=== PATIENT | female | born 1975 | race Two or more races ===

== ENCOUNTER 2018-12-15 23:46 | Emergency (ER) | payer MEDICAID ==
[~2018-12-15] VITALS: Ht 162.6 cm; Wt 68.2 kg
--- NOTE | 2018-12-16 00:07 | NUR ---
pt escorted by this rn from [facility]16 to [facility]. Only belongings are clothes & jewelry she arrived wearing and a [place] c[place] driver's license which accompanied her to [facility]. Report given to GAYE Clayton.
--- NOTE | 2018-12-16 00:28 | NUR ---
Unable to complete assessment. Pt exited restroom wearing her leggings and stated she feels more comfortable wearing her leggings. RN requested that pt take her leggings on and put the green pants on. Pt started yelling at RN and calling names like "bitch" and "cunt" and "do you want to wear my pants". Pt standing at nurse's station. Security called for assistance. Pt continues to yell curse words and requesting staff watch her change clothes.
[2018-12-16 00:33] LABS: BASOPHILS # (AUTO) 0.1 X10'3 (0-0.2); BASOPHILS % (AUTO) 0.9 % (0-1); EOSINOPHILS # (AUTO) 0.1 X10'3 (0-0.9); EOSINOPHILS % (AUTO) 1.4 % (0-6); HEMATOCRIT 42.9 % (35.0-45.0); LYMPHOCYTES # (AUTO) 2.8 X10'3 (1.1-4.8); LYMPHOCYTES % (AUTO) 38.9 % (21-51); MEAN CORPUSCULAR HEMOGLOBIN 29.5 PG (27.0-31.0); MEAN CORPUSCULAR HGB CONC 32.7 g/dL (33.0-36.5); MEAN CORPUSCULAR VOLUME 90.3 FL (78-98); MEAN PLATELET VOLUME 9.2 FL (7.4-10.4); MONOCYTES # (AUTO) 0.6 X10'3 (0-0.9); MONOCYTES % (AUTO) 7.8 % (2-12); NEUTROPHILS # (AUTO) 3.7 X10'3 (1.8-7.7); PLATELET COUNT 241 X10'3 (140-440); RED BLOOD COUNT 4.75 X10'6 (4.20-5.60); RED CELL DISTRIBUTION WIDTH 14.7 % (11.5-14.5); WHITE BLOOD COUNT 7.3 X10'3 (4.5-11.0)
[2018-12-16 00:39] LABS: PARTIAL THROMBOPLASTIN TIME 27 SECONDS (22-32)
[2018-12-16 00:42] LABS: ALANINE AMINOTRANSFERASE 49 U/L (12-78); ALKALINE PHOSPHATASE 62 IU/L (46-116); ANION GAP 12 (8-16); ASPARTATE AMINO TRANSFERASE 35 U/L (10-37); BILIRUBIN,TOTAL 0.7 MG/DL (0.1-1.0); BLOOD UREA NITROGEN 16 MG/DL (7-18); BUN/CREATININE RATIO 16.5 (6.6-38.0); CALCIUM 8.9 MG/DL (8.5-10.1); CHLORIDE 108 MMOL/L (99-107); CREATININE 0.97 MG/DL (0.40-0.90); GLUCOSE 138 MG/DL (70-104); POTASSIUM 3.2 MMOL/L (3.5-5.1); SODIUM 143 MMOL/L (135-145); TOTAL CARBON DIOXIDE 23.4 MMOL/L (24-32); eGFR 63 ML/MIN
[2018-12-16 00:47] LABS: CLARITY,URINE CLEAR (Clear); COLOR,URINE STRAW (Yellow); GLUCOSE, URINE NEGATIVE (Neg); KETONES,URINE NEGATIVE (Neg); LEUKOCYTE ESTERASE ,URINE NEGATIVE (Neg); NITRITES, URINE NEGATIVE (Neg); OCCULT BLOOD,URINE NEGATIVE (Neg); PH,URINE 6.5 (4.8-8.0); PROTEIN,URINE NEGATIVE (Neg); UA COLLECTION TYPE CLN CATCH MIDSTREAM; UROBILINOGEN,URINE 0.2 E.U/dL (0.2-1.0)
[2018-12-16 00:53] LABS: ETHANOL 0.284 GM/DL (0.0-0.010); LIPASE 93 U/L (73-393); MAGNESIUM 2.1 MG/DL (1.5-2.4)
--- NOTE | 2018-12-16 00:55 | NUR ---
PT WAS COOPERATIVE AT FIRST BUT THEN BECAME VERBALY ASSAULTIVE WHEN ASKED TO CHANGE. PT REFUSED TO SIGN FOR CHARTED BELONGINGS, JEWELRY AND DRIVERS LICENSE ARE IN HER CHART SINCE SHE REFUSED TO SIGN WITH REGISTRATION TO HAVE THEM LOCKED UP AFTERM SHE SAID SHE WANTED THEM LOCKED UP
[2018-12-16 01:00] LABS: URINE AMPHETAMINE SCREEN NEGATIVE (Neg); URINE BARBITUATE SCREEN NEGATIVE (Neg); URINE BENZODIAZEPINES SCREEN NEGATIVE (Neg); URINE CANNABINOID SCREEN NEGATIVE (Neg); URINE COCAINE SCREEN NEGATIVE (Neg); URINE METHADONE SCREEN POSITIVE (Neg); URINE OPIATE SCREEN POSITIVE (Neg); URINE PHENCYCLIDINE SCREEN NEGATIVE (Neg)
--- NOTE | 2018-12-16 01:15 | NUR ---
PT HAS 3 SILVER RINGS , ONE WITH STONES , ONE SILVER NOSE POST AND A PAIR OF EARINGS IN A BAGGY IN HER CHART SINCE SHE WOULD NOT SIGN TO HAVE REGISTRATION LOCK THEM UP
--- NOTE | 2018-12-16 01:50 | NUR ---
Pt resting quietly, respirations normal, no s/s of distress.
--- NOTE | 2018-12-16 03:17 | NUR ---
Pt resting quietly, respirations normal, no s/s of distress.
--- NOTE | 2018-12-16 04:30 | NUR ---
Pt resting quietly, respirations normal, no s/s of distress.
--- NOTE | 2018-12-16 05:14 | NUR ---
Pt requested staff to call her place of employment to let them know she would not be in today. Pt informed of phone call usage hours and that she would need to call them. aware.
--- NOTE | 2018-12-16 05:39 | NUR ---
Pt resting quietly, respirations normal, no s/s of distress.
[2018-12-16 06:10] VITALS: BP 115/47
--- NOTE | 2018-12-16 10:09 | NUR ---
[facility] IS AT THE BEDSIDE EVALUATING PATIENT
--- NOTE | 2018-12-16 10:30 | NUR ---
PT WAS SEEN BY [facility] WORKER AND PT IS BEING DC'D HOME.
== END 2018-12-16 11:17 | disposition home or self-care (01) ==
LOC: ER 23:48
DX: F10.129 Alcohol abuse with intoxication, unspecified (principal); F32.9 Major depressive disorder, single episode, unspecified; Z98.51 Tubal ligation status; Z87.891 Personal history of nicotine dependence; Z88.5 Allergy status to narcotic agent; Y90.0 Blood alcohol level of less than 20 mg/100 ml
CPT/HCPCS: 36415; 80053; 80305; 80320; 81003; 83690; 83735; 84443; 85025; 85610; 85730; 99285

== ENCOUNTER 2019-05-19 15:16 | Inpatient (IN) | payer MEDICAID ==
[~2019-05-19] VITALS: Ht 162.6 cm; Wt 63.0 kg
[2019-05-19] MEDS ORDERED: normal saline 1000ML IV soln IVB ONE ×3 (15:30→16:20)
[2019-05-19 15:58] LABS: BASOPHILS # (AUTO) 0.1 X10'3 (0-0.2); BASOPHILS % (AUTO) 0.9 % (0-1); EOSINOPHILS % (AUTO) 0.3 % (0-6); HEMATOCRIT 36.4 % (35.0-45.0); HEMOGLOBIN 12.3 g/dl (12.0-16.0); LYMPHOCYTES # (AUTO) 1.8 X10'3 (1.1-4.8); LYMPHOCYTES % (AUTO) 13.9 % (21-51); MEAN CORPUSCULAR HEMOGLOBIN 32.8 PG (27.0-31.0); MEAN CORPUSCULAR HGB CONC 33.8 g/dL (33.0-36.5); MEAN PLATELET VOLUME 10.5 FL (7.4-10.4); MONOCYTES # (AUTO) 1.3 X10'3 (0-0.9); MONOCYTES % (AUTO) 9.9 % (2-12); NEUTROPHILS # (AUTO) 9.6 X10'3 (1.8-7.7); PLATELET COUNT 265 X10'3 (140-440); RED BLOOD COUNT 3.75 X10'6 (4.20-5.60); WHITE BLOOD COUNT 12.9 X10'3 (4.5-11.0)
[2019-05-19 16:04] LABS: ALANINE AMINOTRANSFERASE 101 U/L (12-78); ALBUMIN/GLOBULIN RATIO 1.1 (1.1-1.5); ALKALINE PHOSPHATASE 87 IU/L (46-116); ANION GAP 13 (8-16); ASPARTATE AMINO TRANSFERASE 59 U/L (10-37); BILIRUBIN,TOTAL 1.3 MG/DL (0.1-1.0); BLOOD UREA NITROGEN 48 MG/DL (7-18); CALCIUM 8.9 MG/DL (8.5-10.1); CHLORIDE 106 MMOL/L (99-107); GLUCOSE 128 MG/DL (70-104); LIPASE 55 U/L (73-393); POTASSIUM 3.3 MMOL/L (3.5-5.1); SODIUM 141 MMOL/L (135-145); TOTAL CARBON DIOXIDE 22.1 MMOL/L (24-32); TOTAL PROTEIN 7.5 G/DL (6.4-8.2)
[2019-05-19] MEDS ORDERED: morphine 4 MG/ML inj SYRINge IV PRN (16:05)
[2019-05-19] MEDS ORDERED: pantoprazole 40 MG vial IV ONE ×2 (16:05→16:45)
[2019-05-19] MEDS ORDERED: ondansetron/PF 4mg/2ml inj IV ONE (16:05)
[2019-05-19] MEDS ORDERED: furosemide 40mg/4ml inj IV ONE ×2 (16:10→16:30)
[2019-05-19] MEDS ORDERED: pantoprazole 40MG/NS 100ML BAG 100 ML IV ONE (16:10)
[2019-05-19 16:19] LABS: CREATININE 0.91 MG/DL (0.40-0.90)
[2019-05-19 16:20] LABS: BUN/CREATININE RATIO 52.7 (6.6-38.0); eGFR 68 ML/MIN
[2019-05-19] MEDS ORDERED: diphenhydrAMINE 50 mg/ml inj IV ONE (16:20)
[2019-05-19] MEDS ORDERED: metoclopramide 5 mg/ml inj IV ONE (16:20)
[2019-05-19] MEDS ORDERED: glycopyrrolate 0.2mg/ml inj IV ONE (16:20)
[2019-05-19] MEDS ORDERED: morphine 4 MG/ML inj SYRINge IV ONE (16:25)
[2019-05-19] MEDS ORDERED: mag hydrox/Alum hydrox/simeth 30ml oral suspension PO PRN (16:40)
[2019-05-19] MEDS ORDERED: metoclopramide 5 mg/ml inj IV PRN (16:40)
[2019-05-19] MEDS ORDERED: potassium Cl 20 mEq SR tablet PO PRN ×2 (16:40)
[2019-05-19] MEDS ORDERED: bisacodyl 10mg suppository rectal RC PRN (16:40)
[2019-05-19] MEDS ORDERED: potassium CL 10mEq/100ml bag 100 ML IV PRN ×2 (16:40)
[2019-05-19] MEDS ORDERED: diphenhydrAMINE 50 mg/ml inj IV PRN (16:40)
[2019-05-19] MEDS ORDERED: magnesium Cl slow-release 64mg tablet PO PRN (16:40)
[2019-05-19] MEDS ORDERED: acetaminophen 650mg rectal suppository RC PRN (16:40)
[2019-05-19] MEDS ORDERED: magnesium 4gm in 100ml NS 100 ML IV PRN (16:40)
[2019-05-19] MEDS ORDERED: HYDROcodone/acetaminophen 5mg/325mg tablet PO PRN (16:40)
[2019-05-19] MEDS ORDERED: ondansetron/PF 4mg/2ml inj IV PRN (16:40)
[2019-05-19] MEDS ORDERED: diphenhydrAMINE 25mg capsule PO PRN (16:40)
[2019-05-19] MEDS ORDERED: magnesium hydroxide 30ml (MOM) UD suspension PO PRN (16:40)
[2019-05-19] MEDS ORDERED: magnesium 2GM in 50ml NS 50 ML IV PRN (16:40)
[2019-05-19] MEDS ORDERED: acetaminophen 325mg tablet PO PRN ×2 (16:40)
[2019-05-19] MEDS ORDERED: NO HOME MEDS (17:07)
[2019-05-19 17:14] LABS: LARGE PLATELETS FEW; PLATELET ESTIMATE NORMAL
[2019-05-19 18:05] LABS: CHOL/HDL RATIO 4.6 (0.00-4.99); CHOLESTEROL 132 MG/DL (0-200); HDL CHOLESTEROL 29 MG/DL (35-60); LDL CHOLESTEROL 86 MG/DL (50-100); TRIGLYCERIDES 136 MG/DL (20-135)
[2019-05-19] MEDS: normal saline 1000ml 1,000 ML IV SCH (18:09)
[2019-05-19] MEDS: K and/or MAG REPLACEMENT MC SCH (18:53)
[2019-05-19] MEDS: HYDROcodone/acetaminophen 10/325mg tab PO PRN (18:58)
--- NOTE | 2019-05-19 19:00 | NUR ---
Received report from SUPPLEMENTAL NURSEGAYE Castro. Patient to arrive shortly.
--- NOTE | 2019-05-19 19:10 | NUR ---
Patient arrived via w/c from ER accompanied by her . Patient in no distress at this time. Patient ambulated to bed, and VS initiated.
[2019-05-19 19:15] VITALS: BP 123/68
[2019-05-19] MEDS: docusate sod 100mg capsule PO SCH (20:00)
[2019-05-19] MEDS: pantoprazole 40MG/NS 100ML BAG 100 ML IV SCH (21:54)
[2019-05-19] MEDS: temazepam 15mg capsule PO PRN (22:59)
[2019-05-20] VITALS (11 sets, daily range): BP systolic 92–112; BP diastolic 53–72
[2019-05-20] MEDS: pantoprazole 40MG/NS 100ML BAG 100 ML IV SCH ×3 (01:00→11:51)
[2019-05-20] MEDS: normal saline 1000ml 1,000 ML IV SCH ×3 (02:56→15:56)
[2019-05-20] MEDS: HYDROcodone/acetaminophen 10/325mg tab PO PRN ×4 (03:15→23:13)
[2019-05-20 05:25] LABS: HEMATOCRIT 22.7 % (35.0-45.0); HEMOGLOBIN 7.7 g/dl (12.0-16.0); MEAN CORPUSCULAR HEMOGLOBIN 33.1 PG (27.0-31.0); MEAN CORPUSCULAR HGB CONC 34.1 g/dL (33.0-36.5); MEAN CORPUSCULAR VOLUME 97.1 FL (78-98); PLATELET COUNT 135 X10'3 (140-440); RED BLOOD COUNT 2.33 X10'6 (4.20-5.60); RED CELL DISTRIBUTION WIDTH 15.5 % (11.5-14.5); WHITE BLOOD COUNT 6.2 X10'3 (4.5-11.0)
[2019-05-20 05:39] LABS: ALBUMIN 2.6 G/DL (3.4-5.0); ANION GAP 10 (8-16); BLOOD UREA NITROGEN 25 MG/DL (7-18); BUN/CREATININE RATIO 35.2 (6.6-38.0); CALCIUM 7.4 MG/DL (8.5-10.1); CHLORIDE 116 MMOL/L (99-107); CREATININE 0.71 MG/DL (0.40-0.90); GLUCOSE 83 MG/DL (70-104); MAGNESIUM 1.4 MG/DL (1.5-2.4); PHOSPHORUS 2.1 MG/DL (2.3-4.5); POTASSIUM 3.5 MMOL/L (3.5-5.1); SODIUM 146 MMOL/L (135-145); TOTAL CARBON DIOXIDE 19.8 MMOL/L (24-32); eGFR > 90 ML/MIN
--- NOTE | 2019-05-20 06:30 | NUR ---
Patient in room [facility] 349. I have received report from GAYE Bell and had the opportunity to ask questions and assume patient care.
[2019-05-20] MEDS: K and/or MAG REPLACEMENT MC SCH ×2 (07:06→20:00)
[2019-05-20] MEDS: docusate sod 100mg capsule PO SCH ×2 (07:06→20:00)
[2019-05-20] MEDS ORDERED: LIDOcaine Viscous 15ml cup ONE (09:19)
[2019-05-20] MEDS ORDERED: MIDAZolam 5mg/5ml vial ONE (09:19)
[2019-05-20] MEDS ORDERED: fentaNYL/PF 50MCG/1 ML 2ML syringe ONE (09:19)
--- NOTE | 2019-05-20 09:33 | NUR ---
Pt off the floor to GI lab for EGD
[2019-05-20] MEDS ORDERED: FLU VACC QS2019-20 36MOS UP/PF 60 MCG/0.5 ML SYRINGE IMVAC ONE (10:00)
--- NOTE | 2019-05-20 11:40 | NUR ---
Pt returned to to room 349B from GI lab. Report received from GI RN.
[2019-05-20] MEDS: Neutra Phos packet PO SCH ×2 (12:17→20:19)
--- NOTE | 2019-05-20 18:30 | NUR ---
Patient in room [facility] 349. I have received report from Brooklyn HUIZAR and had the opportunity to ask questions and assume patient care.
--- NOTE | 2019-05-20 18:40 | NUR ---
Problems reprioritized. Patient report given, questions answered & plan of care reviewed with GAYE Bell.
[2019-05-20] MEDS: pantoprazole 40 MG vial IV SCH (20:18)
[2019-05-20] MEDS: temazepam 15mg capsule PO PRN (23:13)
[2019-05-21] VITALS: BP 106/66
[2019-05-21] MEDS: normal saline 1000ml 1,000 ML IV SCH (01:22)
[2019-05-21 06:21] LABS: HEMOGLOBIN 7.7 g/dl (12.0-16.0); MEAN CORPUSCULAR HGB CONC 33.5 g/dL (33.0-36.5); MEAN CORPUSCULAR VOLUME 98.7 FL (78-98); MEAN PLATELET VOLUME 10.1 FL (7.4-10.4); PLATELET COUNT 106 X10'3 (140-440); RED BLOOD COUNT 2.33 X10'6 (4.20-5.60); RED CELL DISTRIBUTION WIDTH 15.6 % (11.5-14.5); WHITE BLOOD COUNT 3.5 X10'3 (4.5-11.0)
--- NOTE | 2019-05-21 06:22 | NUR ---
Problems reprioritized. Patient report given, questions answered & plan of care reviewed with Araceli RN.
--- NOTE | 2019-05-21 06:39 | NUR ---
Patient in room [facility] 349. I have received report from GAYE Bell and had the opportunity to ask questions and assume patient care.
[2019-05-21 06:47] LABS: ALBUMIN 2.7 G/DL (3.4-5.0); ANION GAP 11 (8-16); BLOOD UREA NITROGEN 7 MG/DL (7-18); BUN/CREATININE RATIO 10.3 (6.6-38.0); CALCIUM 7.7 MG/DL (8.5-10.1); CHLORIDE 115 MMOL/L (99-107); CREATININE 0.68 MG/DL (0.40-0.90); GLUCOSE 83 MG/DL (70-104); MAGNESIUM 1.6 MG/DL (1.5-2.4); PHOSPHORUS 2.7 MG/DL (2.3-4.5); POTASSIUM 3.5 MMOL/L (3.5-5.1); SODIUM 147 MMOL/L (135-145); TOTAL CARBON DIOXIDE 21.1 MMOL/L (24-32); eGFR > 90 ML/MIN
[2019-05-21 07:15] VITALS: BP 103/58
[2019-05-21] MEDS: HYDROcodone/acetaminophen 10/325mg tab PO PRN ×2 (07:32→13:40)
[2019-05-21] MEDS: Neutra Phos packet PO SCH ×2 (07:32→13:40)
[2019-05-21] MEDS: pantoprazole 40 MG vial IV SCH (07:32)
[2019-05-21] MEDS: docusate sod 100mg capsule PO SCH (07:34)
[2019-05-21] MEDS: K and/or MAG REPLACEMENT MC SCH (07:35)
[2019-05-21 11:45] VITALS: BP 117/50
[2019-05-21] MEDS ORDERED: PANT-47 PO (14:01)
== END 2019-05-21 15:00 | disposition home or self-care (01) | DRG 241 ==
LOC: ER 15:17 → ED HOLD 16:39 → SUR 3N 19:06
PROVIDERS: ADMIT Family Medicine; ATTEND Family Medicine
PROC: 0W3P8ZZ Control Bleeding in Gastrointestinal Tract, Via Natural or Artificial Opening Endoscopic (ICD-10-PCS; principal; 2019-05-20)
PROC: 0DB68ZX Excision of Stomach, Via Natural or Artificial Opening Endoscopic, Diagnostic (ICD-10-PCS; 2019-05-20)
PROC: 3E02340 Introduction of Influenza Vaccine into Muscle, Percutaneous Approach (ICD-10-PCS; 2019-05-20)
DX: K25.4 Chronic or unspecified gastric ulcer with hemorrhage (principal); N17.9 Acute kidney failure, unspecified; E83.39 Other disorders of phosphorus metabolism; E83.42 Hypomagnesemia; E87.0 Hyperosmolality and hypernatremia; K76.0 Fatty (change of) liver, not elsewhere classified; D62 Acute posthemorrhagic anemia; G43.909 Migraine, unspecified, not intractable, without status migrainosus; K80.20 Calculus of gallbladder without cholecystitis without obstruction; R00.0 Tachycardia, unspecified; E87.6 Hypokalemia; Z72.0 Tobacco use; Z80.41 Family history of malignant neoplasm of ovary; Z98.51 Tubal ligation status; Z23 Encounter for immunization; Z88.5 Allergy status to narcotic agent; Z72.89 Other problems related to lifestyle
CPT/HCPCS: 36415; 43239; 43255; 80048; 80053; 80061; 83690; 83735; 84100; 85025; 85027; 85610; 86885; 86900; 86901; 87081; 96374; 96375; 99152; 99285; A4620; C9113; G0378; J2250; J2270; J2405; J3010; J7030; J7040; Q2037

== ENCOUNTER 2020-06-23 21:38 | Inpatient (IN) | payer MEDICAID ==
[~2020-06-23] VITALS: Ht 162.6 cm; Wt 63.8 kg
[~2020-06-23 21:38] MED LIST: PANT-47 PO; atropine 0.1mg/ml 10ml syringe ONE; sodium bicarbonate (8.4%) 1 mEq/ml syringe ONE
[2020-06-23] MEDS ORDERED: normal saline 1000ML IV soln IVB ONE ×2 (22:15→23:35)
[2020-06-23] MEDS ORDERED: ondansetron/PF 4mg/2ml inj IV ONE (22:15)
--- NOTE | 2020-06-23 22:15 | NUR ---
ALINA [phone] CELL
[2020-06-23 22:31] LABS: BASOPHILS # (AUTO) 0.1 X10'3 (0-0.2); BASOPHILS % (AUTO) 0.5 % (0-1); EOSINOPHILS % (AUTO) 0 % (0-6); LYMPHOCYTES % (AUTO) 5.7 % (21-51); MEAN PLATELET VOLUME 8.4 FL (7.4-10.4); MONOCYTES # (AUTO) 1.4 X10'3 (0-0.9); MONOCYTES % (AUTO) 8.5 % (2-12); NEUTROPHILS # (AUTO) 14.4 X10'3 (1.8-7.7); NEUTROPHILS % (AUTO) 85.3 % (42-75); PLATELET COUNT 168 X10'3 (140-440); WHITE BLOOD COUNT 16.9 X10'3 (4.5-11.0)
[2020-06-23 22:48] LABS: ALANINE AMINOTRANSFERASE 105 U/L (12-78); ALBUMIN 4.2 G/DL (3.4-5.0); ALKALINE PHOSPHATASE 187 IU/L (46-116); ANION GAP 34 (8-16); ASPARTATE AMINO TRANSFERASE 512 U/L (10-37); BLOOD UREA NITROGEN 12 MG/DL (7-18); BUN/CREATININE RATIO 4.5 (6.6-38.0); CALCIUM 8.6 MG/DL (8.5-10.1); CHLORIDE 93 MMOL/L (99-107); CREATININE 2.67 MG/DL (0.40-0.90); GLUCOSE 101 MG/DL (70-104); MAGNESIUM 2.4 MG/DL (1.5-2.4); POTASSIUM 4.4 MMOL/L (3.5-5.1); SODIUM 132 MMOL/L (135-145); eGFR 20 ML/MIN
--- NOTE | 2020-06-23 22:48 | NUR ---
US OF ABD HAPPENING NOW. PT IS PAINFULL , 8 OUT OF 10, ALL OVER BUT SPECIFICALLY TO HER ABDOMEN AND BACK. RR 36, HR 114, OTHERWISE VSS. A&OX4. JUST GIVEN ZOFRAN ANF 1 LITER NS BOLUS INFUSING.
--- NOTE | 2020-06-23 22:50 | NUR ---
PT UNABLE TO VOID AT THIS TIME. UPDATED OF NEED FOR UA.
[2020-06-23] MEDS ORDERED: fentaNYL/PF 50MCG/1 ML 2ML syringe IV ONE (22:55)
[2020-06-23 22:56] LABS: HCG SERUM QL NEGATIVE
--- NOTE | 2020-06-23 23:05 | NUR ---
US FINISHED. [facility] UPDATED OF PAIN. PAIN MEDS NOW ORDERED.
[2020-06-23 23:11] LABS: TOTAL CARBON DIOXIDE 5.3 MMOL/L (24-32)
[2020-06-23 23:13] LABS: ALBUMIN/GLOBULIN RATIO 0.9 (1.1-1.5); TOTAL PROTEIN 8.7 G/DL (6.4-8.2)
[2020-06-23] MEDS ORDERED: piperacillin/tazo 3.375gm/50ml 50 ML IV ONE (23:35)
[2020-06-23 23:38] LABS: HEMATOCRIT 40.7 % (35.0-45.0); HEMOGLOBIN 11.7 g/dl (12.0-16.0); RED BLOOD COUNT 4.18 X10'6 (4.20-5.60)
[2020-06-23 23:39] LABS: MEAN CORPUSCULAR HGB CONC 28.8 g/dL (33.0-36.5); MEAN CORPUSCULAR VOLUME 97.5 FL (78-98)
[2020-06-23 23:41] LABS: RED CELL DISTRIBUTION WIDTH 20.4 % (11.5-14.5)
[2020-06-23 23:43] LABS: LIPASE > 30000 U/L (73-393)
[2020-06-24] VITALS (21 sets, daily range): BP systolic 82–132; BP diastolic 31–76
[2020-06-24] MEDS ORDERED: potassium Cl 40MEQ/1/2NS 520ml 520 ML IV PRN ×2
[2020-06-24] MEDS ORDERED: potassium Cl 20 mEq SR tablet PO PRN ×2
[2020-06-24] MEDS ORDERED: normal saline 1000ml 1,000 ML IV SCH
[2020-06-24] MEDS ORDERED: acetaminophen 325mg tablet PO PRN
[2020-06-24] MEDS ORDERED: mag hydrox/Alum hydrox/simeth 30ml oral suspension PO PRN
[2020-06-24] MEDS ORDERED: morphine 2 MG/ML inj. syringe IV PRN
[2020-06-24] MEDS ORDERED: magnesium Cl slow-release 64mg tablet PO PRN
[2020-06-24] MEDS ORDERED: ondansetron/PF 4mg/2ml inj IV PRN
[2020-06-24] MEDS ORDERED: magnesium 2GM in 50ml NS 50 ML IV PRN
[2020-06-24] MEDS ORDERED: magnesium hydroxide 30ml (MOM) UD suspension PO PRN
[2020-06-24] MEDS ORDERED: magnesium 4gm in 100ml NS 100 ML IV PRN
[2020-06-24 00:01] LABS: PLATELET ESTIMATE NORMAL; POLYCHROMASIA FEW
[2020-06-24 00:02] LABS: ANISOCYTOSIS 3+
--- NOTE | 2020-06-24 00:02 | NUR ---
[facility] AT BEDSIDE AND REPORTS PT TO BE ADMITTED FOR ERCP. HE WILL ORDER ADTL PAIN MEDS. ZOSYN IVPB INFUSING AND 2ND LITER NS. PT REQUESTNIG TO HAVE WATER, GIVEN SWABS SHE IS NPO FOR PROCEDURE IN AM.
[2020-06-24 00:03] LABS: SPHEROCYTES 1+
[2020-06-24 00:04] LABS: TEAR DROP CELLS 1+
[2020-06-24] MEDS ORDERED: NO HOME MEDS (00:05)
[2020-06-24] MEDS ORDERED: HYDROmorphone 1 mg/ml syringe IV ONE (00:10)
--- NOTE | 2020-06-24 00:11 | NUR ---
Tc Hackett Pt is strick NPO, may have mouth swabs only.
--- NOTE | 2020-06-24 00:13 | NUR ---
updated on plan of care. Reports pt has hx of fatty liver.
--- NOTE | 2020-06-24 01:08 | NUR ---
pt to ct
--- NOTE | 2020-06-24 01:24 | NUR ---
Pt in ED room 1 to be transferred to SURG 360B. Report called to Lisseth Montanez RN. Pt will not be transferred to floor until rapid COVID 19 test results.
[2020-06-24] MEDS ORDERED: normal saline 1000ml 1,000 ML IV ONE ×2 (01:35)
--- NOTE | 2020-06-24 01:52 | NUR ---
updated on plan of care.
--- NOTE | 2020-06-24 02:45 | NUR ---
PATIENT ADMITTED TO ROOM 360B FROM ER FOR CHOLECYSTITIS AND CHOLEDOCHOLETHIASIS. PLACED COMFORTABLE IN BED. VITAL SIGNS TAKEN AND RECORDED.
[2020-06-24] MEDS ORDERED: HYDROmorphone 1 mg/ml syringe IV PRN (04:25)
[2020-06-24 06:27] LABS: ALANINE AMINOTRANSFERASE 103 U/L (12-78); ALBUMIN 3.1 G/DL (3.4-5.0); ALBUMIN/GLOBULIN RATIO 0.9 (1.1-1.5); ALKALINE PHOSPHATASE 127 IU/L (46-116); ANION GAP 26 (8-16); ASPARTATE AMINO TRANSFERASE 571 U/L (10-37); BILIRUBIN,TOTAL 3.6 MG/DL (0.1-1.0); CHLORIDE 102 MMOL/L (99-107); CREATININE 2.53 MG/DL (0.40-0.90); GLUCOSE 68 MG/DL (70-104); MAGNESIUM 1.5 MG/DL (1.5-2.4); POTASSIUM 4.3 MMOL/L (3.5-5.1); SODIUM 135 MMOL/L (135-145); TOTAL PROTEIN 6.5 G/DL (6.4-8.2); eGFR 21 ML/MIN
[2020-06-24 06:35] LABS: BLOOD UREA NITROGEN 13 MG/DL (7-18); BUN/CREATININE RATIO 5.1 (6.6-38.0)
[2020-06-24 06:45] LABS: CALCIUM 6.5 MG/DL (8.5-10.1)
[2020-06-24 06:51] LABS: TOTAL CARBON DIOXIDE 7.5 MMOL/L (24-32)
--- NOTE | 2020-06-24 06:55 | NUR ---
Dr Hernandez-PAGER ID: [phone] MESSAGE: [id number]- virginia Rodríguez- Critical C02 7.5 . patient fell. change in condition. rapid called.- Sharon [phone]
--- NOTE | 2020-06-24 06:57 | NUR ---
This RN and primary RN, NELL called to room 360B by Phuc FELICIANO that patient has fallen. Patient does state she hit her head. Noted change in condition by GAYE CAMEJO. box gluerSara notified. VS. 98.1, 99, 22, 114/91. Rapid called.
--- NOTE | 2020-06-24 07:07 | NUR ---
Dr Hernandez paged x3 times no answer. Dr. Harden paged PAGER ID: [phone] MESSAGE: [id number]=- Carrillo Rodríguez- pt fell, BP was 114 systolic and is now 74. Patient states hit head when fell. RAPID called. PLease call [phone] Cheng
[2020-06-24 07:17] LABS: ABG BASE EXCESS -27.5 mmol/L (-2.0-2.0); ABG HCO3 3.8 mmol/L (22.0-26.0); ABG OXYGEN SATURATION 97.5 % (94-97); ABG PCO2 (T) 19.3 mmHg (32.0-45.0); ABG PO2 (T) 135.9 mmHg (75.0-100.0); ALLEN'S TEST POSITIVE; FCOHb 0.3 % (0.0-3.9); FMetHb 0.4 % (0.0-1.5); FO2Hb 96.8 % (94-97); TOTAL HEMOGLOBIN 10.6 G/dl (12.0-16.0)
--- NOTE | 2020-06-24 07:26 | NUR ---
PAGER ID: [phone] MESSAGE: [id number]- Lukas Rodríguez called, no response from Patient 114/91 HR 99, then dropped to 81/49 HR 114, patient fell hit head. CO2 7.5. - PLease call [phone] or come to room please thank you- Prosper Rosario Addendum: 06/24/20 at 0756 by Prosper Damon RN no response from Dr. Hernandez or Dr. Harden. Group pager paged.
--- NOTE | 2020-06-24 07:45 | NUR ---
Patient in room 360B. I have received report from GAYE CAMEJO and had the opportunity to ask questions and assume patient care.
--- NOTE | 2020-06-24 07:52 | NUR ---
Patient transferred to room 2309 with all belongings. Receiving RN at bedside for report.
[2020-06-24] MEDS ORDERED: piperacillin/tazo 3.375gm/50ml 50 ML IV SCH (08:00)
[2020-06-24] MEDS ORDERED: sodium bicarbonate (8.4%) 1 mEq/ml syringe IV ONE ×3 (08:00→14:40)
[2020-06-24] MEDS: K and/or MAG REPLACEMENT MC SCH ×2 (08:00→20:00)
[2020-06-24] MEDS ORDERED: midazolam 2 mg/2 ml injection ONE (08:05)
[2020-06-24] MEDS ORDERED: MIDAZolam 5mg/ml 2ml vial IV ONE (08:05)
[2020-06-24 08:28] LABS: BASOPHILS % (AUTO) 0.1 % (0-1); LYMPHOCYTES # (AUTO) 0.2 X10'3 (1.1-4.8); MONOCYTES # (AUTO) 0.5 X10'3 (0-0.9)
[2020-06-24 08:31] LABS: EOSINOPHILS % (AUTO) 0 % (0-6); HEMATOCRIT 27.4 % (35.0-45.0); HEMOGLOBIN 8.4 g/dl (12.0-16.0); LYMPHOCYTES % (AUTO) 3.1 % (21-51); MEAN CORPUSCULAR HEMOGLOBIN 28.9 PG (27.0-31.0); MEAN CORPUSCULAR HGB CONC 30.8 g/dL (33.0-36.5); MEAN CORPUSCULAR VOLUME 93.9 FL (78-98); MEAN PLATELET VOLUME 8.2 FL (7.4-10.4); NEUTROPHILS % (AUTO) 89.8 % (42-75); RED BLOOD COUNT 2.92 X10'6 (4.20-5.60); RED CELL DISTRIBUTION WIDTH 20.2 % (11.5-14.5); WHITE BLOOD COUNT 6.7 X10'3 (4.5-11.0)
[2020-06-24 08:36] LABS: ABG BASE EXCESS -18.7 mmol/L (-2.0-2.0); ABG HCO3 8.6 mmol/L (22.0-26.0); ABG OXYGEN SATURATION 95.3 % (94-97); ABG PCO2 (T) 25.1 mmHg (32.0-45.0); FCOHb 0.3 % (0.0-3.9); FLOW 3 L/min; FMetHb 0.5 % (0.0-1.5); FO2Hb 94.5 % (94-97); TOTAL HEMOGLOBIN 8.4 G/dl (12.0-16.0)
[2020-06-24] MEDS ORDERED: calcium chloride 100 MG/1 ML inj IV ONE ×2 (08:40→20:59)
[2020-06-24] MEDS ORDERED: NORepinephrine 8mg/ 250ml NS 250 ML IV ONE (08:40)
[2020-06-24] MEDS ORDERED: sodium bicarbonate (8.4%) 1 mEq/ml syringe ONE (08:41)
[2020-06-24 08:58] LABS: PLATELET COUNT 66 X10'3 (140-440)
[2020-06-24 09:05] LABS: ANISOCYTOSIS 3+; HYPOCHROMASIA 1+; NUCLEATED RED BLOOD CELLS 1 /100WBC (0-0); PLATELET ESTIMATE DECREASED; POLYCHROMASIA 1+; STOMATOCYTES 2+; TOTAL CELLS COUNTED 100
[2020-06-24 09:06] LABS: LARGE PLATELETS FEW
[2020-06-24] MEDS: propofol 1000mg/100ml bottle 100 ML IV SCH ×2 (09:10→21:57)
[2020-06-24] MEDS ORDERED: propofol 10mg/ml 20ml vial IV PRN (09:10)
[2020-06-24] MEDS ORDERED: fentaNYL/PF 50MCG/1 ML 2ML syringe IV PRN (09:10)
[2020-06-24] MEDS ORDERED: methylnaltrexone br 12mg/0.6ml inj***SubQ only SQ ONE (09:15)
[2020-06-24] MEDS ORDERED: octreotide 100mcg/1 ml ampule IV ONE (09:25)
[2020-06-24] MEDS ORDERED: vancomycin/NS 1 GM ADD-VANTAGE 250 ML IV ONE (09:35)
[2020-06-24] MEDS ORDERED: propofol (Diprivan) 10mg/ml 100ml bottle IV PRN (09:35)
[2020-06-24] MEDS: sodium bicarbonate (8.4%) inj. 150 MEQ in dextrose 5%-water 1,000 ML IV SCH ×2 (09:51→18:58)
[2020-06-24] MEDS ORDERED: FLU VACC QS2020-21(6MOS UP)/PF 60 MCG/0.5 ML SYRINGE IMVAC ONE (10:00)
[2020-06-24 10:43] LABS: BASOPHILS % (AUTO) 0.2 % (0-1); HEMOGLOBIN 8.7 g/dl (12.0-16.0); LYMPHOCYTES # (AUTO) 0.3 X10'3 (1.1-4.8); MONOCYTES # (AUTO) 0.3 X10'3 (0-0.9); MONOCYTES % (AUTO) 5.9 % (2-12); RED BLOOD COUNT 3.01 X10'6 (4.20-5.60); WHITE BLOOD COUNT 4.6 X10'3 (4.5-11.0)
[2020-06-24 10:45] LABS: EOSINOPHILS % (AUTO) 0.1 % (0-6); HEMATOCRIT 28.5 % (35.0-45.0); LYMPHOCYTES % (AUTO) 7.3 % (21-51); MEAN CORPUSCULAR HEMOGLOBIN 28.8 PG (27.0-31.0); MEAN CORPUSCULAR HGB CONC 30.5 g/dL (33.0-36.5); MEAN CORPUSCULAR VOLUME 94.6 FL (78-98); MEAN PLATELET VOLUME 7.7 FL (7.4-10.4); NEUTROPHILS % (AUTO) 86.5 % (42-75); PLATELET COUNT 54 X10'3 (140-440); RED CELL DISTRIBUTION WIDTH 20.7 % (11.5-14.5)
[2020-06-24 10:58] LABS: ALANINE AMINOTRANSFERASE 105 U/L (12-78); ALBUMIN 2.5 G/DL (3.4-5.0); ALKALINE PHOSPHATASE 98 IU/L (46-116); ANION GAP 22 (8-16); ASPARTATE AMINO TRANSFERASE 637 U/L (10-37); BILIRUBIN,TOTAL 3.5 MG/DL (0.1-1.0); BLOOD UREA NITROGEN 13 MG/DL (7-18); BUN/CREATININE RATIO 4.7 (6.6-38.0); CHLORIDE 109 MMOL/L (99-107); CREATININE 2.76 MG/DL (0.40-0.90); GLUCOSE 82 MG/DL (70-104); POTASSIUM 3.5 MMOL/L (3.5-5.1); SODIUM 146 MMOL/L (135-145); TOTAL CARBON DIOXIDE 15.5 MMOL/L (24-32); TOTAL PROTEIN 5.1 G/DL (6.4-8.2); eGFR 19 ML/MIN
[2020-06-24 11:04] LABS: ABG BASE EXCESS -16.5 mmol/L (-2.0-2.0); ABG HCO3 12.9 mmol/L (22.0-26.0); ABG OXYGEN SATURATION 88.6 % (94-97); ABG PCO2 (T) 45.7 mmHg (32.0-45.0); ABG PO2 (T) 68.4 mmHg (75.0-100.0); FCOHb 0.3 % (0.0-3.9); FMetHb 0.2 % (0.0-1.5); FO2Hb 88.2 % (94-97); PEEP 5 cm H2O; RESPIRATORY RATE 14 b/min; TIDAL VOLUME 400 mL; TOTAL HEMOGLOBIN 9.8 G/dl (12.0-16.0)
[2020-06-24] MEDS: pantoprazole 40 MG vial IV SCH (11:08)
[2020-06-24 11:10] LABS: CREATINE KINASE 1368 U/L (26-192)
[2020-06-24 11:20] LABS: OXYGEN SATURATION (MIXED VEN) 76.3 % (60-80); PO2 MIXED VENOUS (TEMP COR) 51.2 mmHg (35-46)
[2020-06-24] MEDS ORDERED: calcium chloride inj. 1,000 MG in NS 100ml IV soln (110ml) IV PRN (11:25)
[2020-06-24] MEDS ORDERED: vancomycin/NS 1 GM ADD-VANTAGE 250 ML X 1 DOSE IV PRN (11:45)
[2020-06-24] MEDS ORDERED: rocuronium 10mg/ml inj IV ONE (12:00)
[2020-06-24] MEDS ORDERED: etomidate 2mg/ml inj. ONE (12:00)
[2020-06-24] MEDS ORDERED: furosemide 10 MG/1 ML 10ml inj IV ONE (14:25)
[2020-06-24 14:36] LABS: ABG BASE EXCESS -16.1 mmol/L (-2.0-2.0); ABG HCO3 13.2 mmol/L (22.0-26.0); ABG OXYGEN SATURATION 81.8 % (94-97); ABG PCO2 (T) 44.1 mmHg (32.0-45.0); ABG PO2 (T) 52.9 mmHg (75.0-100.0); FCOHb 0.3 % (0.0-3.9); FMetHb 0.2 % (0.0-1.5); FO2Hb 81.4 % (94-97); PATIENT TEMPERATURE 36.2; PEEP 18 cm H2O; RESPIRATORY RATE 28 b/min; TIDAL VOLUME 280 mL; TOTAL HEMOGLOBIN 10.1 G/dl (12.0-16.0)
[2020-06-24] MEDS ORDERED: fentaNYL/PF 50MCG/1 ML 2ML syringe ONE (14:39)
[2020-06-24] MEDS ORDERED: levoFLOXACIN-Levaquin 500mg/D5 100 ML IV ONE (14:40)
[2020-06-24] MEDS ORDERED: glucagon, human recombinant 1mg kit ONE (14:40)
[2020-06-24] MEDS ORDERED: MIDAZolam 5mg/5ml vial ONE (14:40)
[2020-06-24] MEDS ORDERED: iohexol 300 MG/1 ML 50ml polymer ONE (14:40)
[2020-06-24] MEDS ORDERED: LIDOcaine Viscous 15ml cup ONE (14:40)
[2020-06-24] MEDS ORDERED: diphenhydrAMINE 50 mg/ml inj ONE (14:41)
[2020-06-24] MEDS ORDERED: heparin 1,000unit/ml 10ml vial 10 ML IV ONE (15:10)
--- NOTE | 2020-06-24 15:37 | NUR ---
07 received patient into room 2038. pt placed on bedside monitor and oxygen at 3l nc. md at bedside. pt prepped for art and central line placement. 929 pt intubated with 7.[address] Charles.
--- NOTE | 2020-06-24 15:59 | NUR ---
Malnutrition consult. Patient is intubated and sedated after a rapid was called this morning. Per MD note [facility] and will begin CV[facility], diagnosed with pancreatitis, gallstones, ARDS and to limit fluids to avoid abdominal compartment syndrome. Has common duct stone, lipase greater than 30,000; as discussed at critical care rounds patient is not stable to start nutrition today. Will follow and provide nutrition recommendations as appropriate. No evidence of malnutrition at this time, weight is consistent with UBW. Recommend: 1. Will follow course of care and provide nutrition recommendations as appropriate when consult is received. Addendum: 06/24/20 at [address] Amended: Links added.
[2020-06-24] MEDS: furosemide 10 MG/1 ML 10ml inj IV SCH ×2 (16:00→20:00)
[2020-06-24] MEDS: NORepinephrine 8mg/ 250ml NS 250 ML IV PRN ×2 (16:06→18:57)
--- NOTE | 2020-06-24 18:15 | NUR ---
Patient in room ICU 2038. I have received report from Alexa HUIZAR and had the opportunity to ask questions and assume patient care. Patient is not doing well. Levo is at maximum rate and MAP is still <60. New orders to start vasopressin. Will take new labs, coags and blood cultures. Last coags would not result due to being too high. Dialysis nurse just arrived and will start treatment soon. Will continue to monitor patient closely.
--- NOTE | 2020-06-24 18:17 | NUR ---
1415 pt was scheduled for head CT and HIDA scan but was determined to be too unstable. Dr. Charles discussed case with GI and a bedside MRCP will be performed this afternoon. Pt moved to [facility] for procedure and Micha was placed to the left groin. After placement pt was placed prone for ERCP 1445 at bedside, emotional support given. 1530 mother at bedside. mother relates that her daughter is an alcoholic. 1610 GI lab staff at bedside setting up for procedure. ERCP performed and completed at 1745. pt tolerated procedure well. vital signs remained stable. Oxygen saturations during procedure were 95-99% on fio2 of 90% and PEEP of 16. wash house supervisor contacted and given orders for a treatment tonight. 1800 report given to Iram time allowed for questions. Pt returned to hospital bed and supine position.
[2020-06-24] MEDS ORDERED: heparin 1,000 units/ml 10ml inj HE ONE ×2 (18:30)
[2020-06-24] MEDS: octreotide inj. 1,250 MCG in normal saline 250ml IV soln 243.75 ML IV SCH (18:59)
[2020-06-24 19:13] LABS: ABG HCO3 13.9 mmol/L (22.0-26.0); ABG OXYGEN SATURATION 99.2 % (94-97); ABG PCO2 (T) 39.9 mmHg (32.0-45.0); ABG PO2 (T) 257.1 mmHg (75.0-100.0); FCOHb 0.3 % (0.0-3.9); FMetHb 0.4 % (0.0-1.5); FO2Hb 98.5 % (94-97); PEEP 16 cm H2O; RESPIRATORY RATE 30 b/min; TIDAL VOLUME 280 mL; TOTAL HEMOGLOBIN 10.7 G/dl (12.0-16.0)
[2020-06-24 19:26] LABS: BASOPHILS % (AUTO) 0.3 % (0-1); HEMATOCRIT 31.8 % (35.0-45.0); HEMOGLOBIN 9.7 g/dl (12.0-16.0); LYMPHOCYTES # (AUTO) 0.3 X10'3 (1.1-4.8); LYMPHOCYTES % (AUTO) 8.8 % (21-51); MEAN CORPUSCULAR HEMOGLOBIN 28.9 PG (27.0-31.0); MEAN CORPUSCULAR HGB CONC 30.5 g/dL (33.0-36.5); MEAN CORPUSCULAR VOLUME 94.7 FL (78-98); MEAN PLATELET VOLUME 8.1 FL (7.4-10.4); MONOCYTES # (AUTO) 0.2 X10'3 (0-0.9); MONOCYTES % (AUTO) 5.1 % (2-12); NEUTROPHILS % (AUTO) 84.8 % (42-75); PLATELET COUNT 79 X10'3 (140-440); RED BLOOD COUNT 3.36 X10'6 (4.20-5.60); RED CELL DISTRIBUTION WIDTH 20.7 % (11.5-14.5); WHITE BLOOD COUNT 3.6 X10'3 (4.5-11.0)
[2020-06-24 19:40] LABS: ALANINE AMINOTRANSFERASE 127 U/L (12-78); ALBUMIN 2.3 G/DL (3.4-5.0); ALBUMIN/GLOBULIN RATIO 0.9 (1.1-1.5); ALKALINE PHOSPHATASE 97 IU/L (46-116); ANION GAP 23 (8-16); ASPARTATE AMINO TRANSFERASE 753 U/L (10-37); BILIRUBIN,TOTAL 3.5 MG/DL (0.1-1.0); BLOOD UREA NITROGEN 16 MG/DL (7-18); BUN/CREATININE RATIO 4.7 (6.6-38.0); CALCIUM 6.4 MG/DL (8.5-10.1); CHLORIDE 105 MMOL/L (99-107); CREATININE 3.39 MG/DL (0.40-0.90); GLUCOSE 110 MG/DL (70-104); MAGNESIUM 1.6 MG/DL (1.5-2.4); SODIUM 145 MMOL/L (135-145); TOTAL CARBON DIOXIDE 17.2 MMOL/L (24-32); eGFR 15 ML/MIN
[2020-06-24 19:45] LABS: POTASSIUM 2.5 MMOL/L (3.5-5.1)
[2020-06-24 19:55] LABS: PO2 MIXED VENOUS (TEMP COR) 37.4 mmHg (35-46)
[2020-06-24] MEDS: vasopressin inj. 40 UNIT in normal saline 50ml IV soln 38 ML IV SCH (20:09)
[2020-06-24 20:23] LABS: CREATINE KINASE 3341 U/L (26-192)
[2020-06-24] MEDS: NORepinephrine inj. 32 MG in normal saline 250ml IV soln 218 ML IV SCH (21:09)
[2020-06-24] MEDS ORDERED: albumin (human) 25% 100 ML IV solution IV ONE (21:35)
[2020-06-24] MEDS: Duosol 4K/3 Ca (w/calcium) 5,000 ML HE SCH (21:58)
[2020-06-24] MEDS: dexmedetomidine/D5W 100mL 100 ML IV SCH (22:45)
[2020-06-24] MEDS: cefepime 1GM/NS ADD-VANTAGE 100 ML IV SCH (22:56)
[2020-06-24 23:01] LABS: ANION GAP 16 (8-16); BLOOD UREA NITROGEN 6 MG/DL (7-18); BUN/CREATININE RATIO 4.5 (6.6-38.0); CALCIUM 7.4 MG/DL (8.5-10.1); CHLORIDE 102 MMOL/L (99-107); CREATININE 1.33 MG/DL (0.40-0.90); GLUCOSE 72 MG/DL (70-104); POTASSIUM 3.5 MMOL/L (3.5-5.1); SODIUM 142 MMOL/L (135-145); TOTAL CARBON DIOXIDE 24.1 MMOL/L (24-32); eGFR 44 ML/MIN
[2020-06-24 23:02] LABS: ALANINE AMINOTRANSFERASE 120 U/L (12-78); ALBUMIN 3.4 G/DL (3.4-5.0); ALBUMIN/GLOBULIN RATIO 1.5 (1.1-1.5); ALKALINE PHOSPHATASE 84 IU/L (46-116); ASPARTATE AMINO TRANSFERASE 739 U/L (10-37); BILIRUBIN,TOTAL 3.3 MG/DL (0.1-1.0); TOTAL PROTEIN 5.6 G/DL (6.4-8.2)
[2020-06-24] MEDS ORDERED: dextrose 50%-water 50ml dispensing syringe IV ONE (23:58)
[2020-06-25] VITALS (24 sets, daily range): BP systolic 98–144; BP diastolic 29–42
[2020-06-25] MEDS: Duosol 4K/3 Ca (w/calcium) 5,000 ML HE SCH ×7 (00:47→14:53)
[2020-06-25 01:46] LABS: EOSINOPHILS # (AUTO) 0.1 X10'3 (0-0.9); EOSINOPHILS % (AUTO) 2.4 % (0-6); HEMOGLOBIN 7.9 g/dl (12.0-16.0); LYMPHOCYTES # (AUTO) 0.6 X10'3 (1.1-4.8); MEAN PLATELET VOLUME 8.6 FL (7.4-10.4); MONOCYTES # (AUTO) 0.1 X10'3 (0-0.9)
[2020-06-25 01:48] LABS: BASOPHILS % (AUTO) 0.3 % (0-1); HEMATOCRIT 25.7 % (35.0-45.0); LYMPHOCYTES % (AUTO) 14.6 % (21-51); MEAN CORPUSCULAR HEMOGLOBIN 28.9 PG (27.0-31.0); MEAN CORPUSCULAR HGB CONC 30.7 g/dL (33.0-36.5); MONOCYTES % (AUTO) 3.6 % (2-12); NEUTROPHILS # (AUTO) 3.3 X10'3 (1.8-7.7); NEUTROPHILS % (AUTO) 79.1 % (42-75); PLATELET COUNT 53 X10'3 (140-440); RED BLOOD COUNT 2.73 X10'6 (4.20-5.60); RED CELL DISTRIBUTION WIDTH 20.8 % (11.5-14.5); WHITE BLOOD COUNT 4.1 X10'3 (4.5-11.0)
[2020-06-25 01:56] LABS: ALANINE AMINOTRANSFERASE 139 U/L (12-78); ALBUMIN 2.7 G/DL (3.4-5.0); ALBUMIN/GLOBULIN RATIO 1.2 (1.1-1.5); ALKALINE PHOSPHATASE 73 IU/L (46-116); ANION GAP 22 (8-16); ASPARTATE AMINO TRANSFERASE 819 U/L (10-37); BILIRUBIN,TOTAL 3.5 MG/DL (0.1-1.0); BLOOD UREA NITROGEN 7 MG/DL (7-18); BUN/CREATININE RATIO 3.4 (6.6-38.0); CALCIUM 6.5 MG/DL (8.5-10.1); CHLORIDE 101 MMOL/L (99-107); CREATININE 2.06 MG/DL (0.40-0.90); GLUCOSE 75 MG/DL (70-104); MAGNESIUM 1.5 MG/DL (1.5-2.4); POTASSIUM 3.3 MMOL/L (3.5-5.1); SODIUM 141 MMOL/L (135-145); TOTAL CARBON DIOXIDE 18.4 MMOL/L (24-32); TOTAL PROTEIN 4.9 G/DL (6.4-8.2); eGFR 26 ML/MIN
[2020-06-25 02:04] LABS: PARTIAL THROMBOPLASTIN TIME 49 SECONDS (22-32)
[2020-06-25 02:29] LABS: NUCLEATED RED BLOOD CELLS 4 /100WBC (0-0); TOTAL CELLS COUNTED 100
[2020-06-25 02:30] LABS: ANISOCYTOSIS 3+; PLATELET ESTIMATE DECREASED
[2020-06-25 02:52] LABS: ALBUMIN 2.8 G/DL (3.4-5.0); ANION GAP 22 (8-16); BLOOD UREA NITROGEN 8 MG/DL (7-18); BUN/CREATININE RATIO 3.9 (6.6-38.0); CHLORIDE 102 MMOL/L (99-107); CREATININE 2.04 MG/DL (0.40-0.90); GLUCOSE 65 MG/DL (70-104); MAGNESIUM 1.6 MG/DL (1.5-2.4); PHOSPHORUS 2.7 MG/DL (2.3-4.5); POTASSIUM 3.7 MMOL/L (3.5-5.1); SODIUM 142 MMOL/L (135-145); TOTAL CARBON DIOXIDE 17.7 MMOL/L (24-32); eGFR 27 ML/MIN
[2020-06-25] MEDS: VANCOMYCIN LEVEL IV SCH (03:00)
[2020-06-25 03:06] LABS: BASOPHILS % (AUTO) 0.1 % (0-1); HEMOGLOBIN 8.2 g/dl (12.0-16.0); MONOCYTES # (AUTO) 0.2 X10'3 (0-0.9); RED BLOOD COUNT 2.82 X10'6 (4.20-5.60); RED CELL DISTRIBUTION WIDTH 20.6 % (11.5-14.5)
[2020-06-25 03:07] LABS: EOSINOPHILS # (AUTO) 0.1 X10'3 (0-0.9); EOSINOPHILS % (AUTO) 2.7 % (0-6); HEMATOCRIT 26.4 % (35.0-45.0); LYMPHOCYTES # (AUTO) 0.6 X10'3 (1.1-4.8); LYMPHOCYTES % (AUTO) 13.2 % (21-51); MEAN CORPUSCULAR VOLUME 93.7 FL (78-98); MEAN PLATELET VOLUME 8.2 FL (7.4-10.4); MONOCYTES % (AUTO) 4.7 % (2-12); NEUTROPHILS # (AUTO) 3.6 X10'3 (1.8-7.7); NEUTROPHILS % (AUTO) 79.3 % (42-75); PLATELET COUNT 52 X10'3 (140-440); WHITE BLOOD COUNT 4.6 X10'3 (4.5-11.0)
[2020-06-25] MEDS ORDERED: calcium chloride 100 MG/1 ML inj IV ONE ×2 (03:30→22:27)
[2020-06-25] MEDS ORDERED: dextrose 50%-water 50ml dispensing syringe IV PRN (03:35)
[2020-06-25 03:44] LABS: ABG BASE EXCESS -10.4 mmol/L (-2.0-2.0); ABG HCO3 16.3 mmol/L (22.0-26.0); ABG OXYGEN SATURATION 99.2 % (94-97); ABG PCO2 (T) 37.9 mmHg (32.0-45.0); ABG PO2 (T) 170.1 mmHg (75.0-100.0); FCOHb 0.2 % (0.0-3.9); FMetHb 0.3 % (0.0-1.5); FO2Hb 98.7 % (94-97); PATIENT TEMPERATURE 36.2; PEEP 14 cm H2O; RESPIRATORY RATE 30 b/min; TIDAL VOLUME 280 mL; TOTAL HEMOGLOBIN 8.7 G/dl (12.0-16.0)
[2020-06-25 03:54] LABS: OXYGEN SATURATION (MIXED VEN) 68.9 % (60-80); PO2 MIXED VENOUS (TEMP COR) 41.8 mmHg (35-46)
[2020-06-25 03:59] LABS: BASOPHILS % (AUTO) 0.2 % (0-1); EOSINOPHILS # (AUTO) 0.2 X10'3 (0-0.9); HEMOGLOBIN 8.1 g/dl (12.0-16.0); MEAN CORPUSCULAR VOLUME 94.5 FL (78-98); MONOCYTES # (AUTO) 0.2 X10'3 (0-0.9); NEUTROPHILS # (AUTO) 3.9 X10'3 (1.8-7.7); RED BLOOD COUNT 2.78 X10'6 (4.20-5.60)
[2020-06-25] MEDS: furosemide 10 MG/1 ML 10ml inj IV SCH ×6 (04:00→20:36)
[2020-06-25 04:01] LABS: EOSINOPHILS % (AUTO) 3.1 % (0-6); HEMATOCRIT 26.3 % (35.0-45.0); LYMPHOCYTES # (AUTO) 0.8 X10'3 (1.1-4.8); LYMPHOCYTES % (AUTO) 15.2 % (21-51); MEAN CORPUSCULAR HGB CONC 30.7 g/dL (33.0-36.5); MEAN PLATELET VOLUME 8.6 FL (7.4-10.4); MONOCYTES % (AUTO) 3.8 % (2-12); NEUTROPHILS % (AUTO) 77.7 % (42-75); PLATELET COUNT 53 X10'3 (140-440); RED CELL DISTRIBUTION WIDTH 20.8 % (11.5-14.5)
[2020-06-25 04:08] LABS: ALBUMIN 2.7 G/DL (3.4-5.0); ANION GAP 22 (8-16); BLOOD UREA NITROGEN 8 MG/DL (7-18); CHLORIDE 101 MMOL/L (99-107); GLUCOSE 89 MG/DL (70-104); MAGNESIUM 1.5 MG/DL (1.5-2.4); PHOSPHORUS 2.7 MG/DL (2.3-4.5); POTASSIUM 3.5 MMOL/L (3.5-5.1); SODIUM 141 MMOL/L (135-145); TOTAL CARBON DIOXIDE 17.8 MMOL/L (24-32); eGFR 27 ML/MIN
[2020-06-25] MEDS: dexmedetomidine/D5W 100mL 100 ML IV SCH ×2 (04:55→11:30)
[2020-06-25] MEDS: calcium chloride inj. 1,000 MG in normal saline 100ml IV soln 90 ML IV PRN (04:56)
[2020-06-25] MEDS: FENTANYL-0.9 % NACL/PF 100 ML IV PRN (04:56)
--- NOTE | 2020-06-25 04:57 | NUR ---
3 silver colored rings removed from patient's hands. Placed a labeled container along with her glasses. Belongings placed in patient's bedside drawer.
[2020-06-25 05:14] LABS: EOSINOPHILS # (AUTO) 0.2 X10'3 (0-0.9); LYMPHOCYTES # (AUTO) 0.7 X10'3 (1.1-4.8); NEUTROPHILS % (AUTO) 77.9 % (42-75)
[2020-06-25 05:16] LABS: BASOPHILS % (AUTO) 0.3 % (0-1); EOSINOPHILS % (AUTO) 3.2 % (0-6); HEMATOCRIT 26.1 % (35.0-45.0); LYMPHOCYTES % (AUTO) 13.8 % (21-51); MEAN CORPUSCULAR HGB CONC 30.7 g/dL (33.0-36.5); MEAN CORPUSCULAR VOLUME 94.2 FL (78-98); MEAN PLATELET VOLUME 8.9 FL (7.4-10.4); MONOCYTES # (AUTO) 0.2 X10'3 (0-0.9); MONOCYTES % (AUTO) 4.8 % (2-12); PLATELET COUNT 51 X10'3 (140-440); RED BLOOD COUNT 2.77 X10'6 (4.20-5.60); RED CELL DISTRIBUTION WIDTH 20.8 % (11.5-14.5); WHITE BLOOD COUNT 5.1 X10'3 (4.5-11.0)
[2020-06-25] MEDS: propofol 1000mg/100ml bottle 100 ML IV SCH ×2 (05:32→05:43)
[2020-06-25 05:41] LABS: ALBUMIN 2.7 G/DL (3.4-5.0); ANION GAP 20 (8-16); BLOOD UREA NITROGEN 7 MG/DL (7-18); BUN/CREATININE RATIO 3.6 (6.6-38.0); CHLORIDE 102 MMOL/L (99-107); CREATININE 1.95 MG/DL (0.40-0.90); GLUCOSE 80 MG/DL (70-104); MAGNESIUM 1.6 MG/DL (1.5-2.4); PHOSPHORUS 2.9 MG/DL (2.3-4.5); POTASSIUM 3.7 MMOL/L (3.5-5.1); SODIUM 140 MMOL/L (135-145); TOTAL CARBON DIOXIDE 17.6 MMOL/L (24-32); eGFR 28 ML/MIN
[2020-06-25] MEDS: vasopressin inj. 40 UNIT in normal saline 50ml IV soln 38 ML IV SCH ×2 (05:42→05:55)
[2020-06-25] MEDS: NORepinephrine inj. 32 MG in normal saline 250ml IV soln 218 ML IV SCH ×2 (05:43→16:39)
[2020-06-25 06:14] LABS: LIPASE 6975 U/L (73-393)
--- NOTE | 2020-06-25 06:15 | NUR ---
Problems reprioritized. Patient report given, questions answered & plan of care reviewed with Maureen HUIZAR.
[2020-06-25 06:23] LABS: LIPASE 7423 U/L (73-393)
[2020-06-25 07:06] LABS: VANCOMYCIN,RANDOM 11.2 UG/ML
[2020-06-25] MEDS: pantoprazole 40 MG vial IV SCH (07:24)
[2020-06-25] MEDS: cefepime 1GM/NS ADD-VANTAGE 100 ML IV SCH ×2 (07:24→20:35)
[2020-06-25] MEDS: K and/or MAG REPLACEMENT MC SCH ×2 (08:00→20:00)
[2020-06-25] MEDS ORDERED: vancomycin/NS 1 GM ADD-VANTAGE 250 ML X 1 DOSE IV ONE (08:30)
[2020-06-25] MEDS: dextrose 50%-water 50ml dispensing syringe IV PRN ×3 (09:34→19:22)
[2020-06-25 09:42] LABS: OXYGEN SATURATION (MIXED VEN) 68.9 % (60-80); PO2 MIXED VENOUS (TEMP COR) 38.9 mmHg (35-46)
[2020-06-25 09:57] LABS: EOSINOPHILS # (AUTO) 0.2 X10'3 (0-0.9); HEMOGLOBIN 7.9 g/dl (12.0-16.0); LYMPHOCYTES # (AUTO) 0.9 X10'3 (1.1-4.8); MEAN CORPUSCULAR VOLUME 94.9 FL (78-98); MONOCYTES # (AUTO) 0.3 X10'3 (0-0.9)
[2020-06-25 09:59] LABS: BASOPHILS % (AUTO) 0.2 % (0-1); EOSINOPHILS % (AUTO) 2.5 % (0-6); HEMATOCRIT 25.6 % (35.0-45.0); MEAN CORPUSCULAR HEMOGLOBIN 29.4 PG (27.0-31.0); MEAN CORPUSCULAR HGB CONC 30.9 g/dL (33.0-36.5); MEAN PLATELET VOLUME 8.5 FL (7.4-10.4); MONOCYTES % (AUTO) 4.3 % (2-12); WHITE BLOOD COUNT 7.3 X10'3 (4.5-11.0)
[2020-06-25 10:03] LABS: PLATELET COUNT 47 X10'3 (140-440)
[2020-06-25 10:04] LABS: ALBUMIN 2.5 G/DL (3.4-5.0); ANION GAP 23 (8-16); BLOOD UREA NITROGEN 6 MG/DL (7-18); BUN/CREATININE RATIO 3.2 (6.6-38.0); CHLORIDE 101 MMOL/L (99-107); CREATININE 1.88 MG/DL (0.40-0.90); GLUCOSE 183 MG/DL (70-104); MAGNESIUM 1.6 MG/DL (1.5-2.4); PHOSPHORUS 3.7 MG/DL (2.3-4.5); POTASSIUM 4.5 MMOL/L (3.5-5.1); SODIUM 139 MMOL/L (135-145); TOTAL CARBON DIOXIDE 15.3 MMOL/L (24-32); eGFR 29 ML/MIN
[2020-06-25] MEDS ORDERED: haloperidol lactate 5mg/ml inj IM PRN (10:40)
[2020-06-25] MEDS ORDERED: LORazepam 2 mg/ml vial IV PRN ×2 (10:40)
[2020-06-25 10:43] LABS: ANISOCYTOSIS 3+; HYPOCHROMASIA 1+; PLATELET ESTIMATE DECREASED; STOMATOCYTES 1+; TOTAL CELLS COUNTED 100
[2020-06-25] MEDS ORDERED: DEXTROSE 10% IV SCH (11:00)
[2020-06-25] MEDS ORDERED: CALCIUM CHLORIDE IV SCH (11:00)
[2020-06-25] MEDS ORDERED: WATER IV SCH (11:00)
[2020-06-25] MEDS: folic acid 1mg/0.2ml inj IV SCH (11:58)
[2020-06-25] MEDS: methylnaltrexone br 12mg/0.6ml inj***SubQ only SQ SCH (11:59)
[2020-06-25] MEDS ORDERED: thiamine inj. 100 MG in normal saline 100ml IV soln 99 ML IV SCH (12:00)
[2020-06-25 12:06] LABS: AMYLASE 633 U/L (25-115)
--- NOTE | 2020-06-25 12:11 | NUR ---
06/25: TF consult: Pt remains intubated with an OG tube in place. Pt to start trickle tube feeding at 20 mL/hr using Vital High Protein per MD. Orders in place for CRRT. Will continue to follow closely. 06/24: Malnutrition consult. Patient is intubated and sedated after a rapid was called this morning. Per MD note [facility] declined patient and will begin CVVH, diagnosed with pancreatitis, gallstones, ARDS and to limit fluids to avoid abdominal compartment syndrome. Has common duct stone, lipase greater than 30,000; as discussed at critical care rounds patient is not stable to start nutrition today. Will follow and provide nutrition recommendations as appropriate. No evidence of malnutrition at this time, weight is consistent with UBW. Recommend: 1. Continuous trickle TF per MD via OG tube using Vital High Protein with goal rate of 20 mL/hr. To provide: 480 mL total volume/day, 480 kcal, 42 g protein, and 401 mL water 2. If to advance TF to meet estimated nutrient needs, Vital High Protein with goal rate of 70 mL/hr while receiving CRRT 3. Prealbumin q Saturday/ 4. Daily weights 5. Continue routine Folic acid and Thiamine for EtOH hx (see MD note) 6. Routine opioid antagonist per MD Addendum: 06/25/20 at [address] Amended: Links added.
[2020-06-25] MEDS: mineral oil/petrolatum ophthal oint EACHEYE SCH ×2 (14:53→20:36)
[2020-06-25 16:18] LABS: ABG BASE EXCESS -18.3 mmol/L (-2.0-2.0); ABG HCO3 9.9 mmol/L (22.0-26.0); ABG OXYGEN SATURATION 99.7 % (94-97); ABG PCO2 (T) 31.1 mmHg (32.0-45.0); FCOHb 0.8 % (0.0-3.9); FMetHb 0.3 % (0.0-1.5); FO2Hb 98.6 % (94-97); PATIENT TEMPERATURE 36.5; PEEP 10 cm H2O; RESPIRATORY RATE 30 b/min; TIDAL VOLUME 280 mL; TOTAL HEMOGLOBIN 9.2 G/dl (12.0-16.0)
[2020-06-25 16:23] LABS: BASOPHILS % (AUTO) 0.3 % (0-1); EOSINOPHILS # (AUTO) 0.2 X10'3 (0-0.9); EOSINOPHILS % (AUTO) 2.1 % (0-6); HEMATOCRIT 27.1 % (35.0-45.0); HEMOGLOBIN 8.3 g/dl (12.0-16.0); LYMPHOCYTES # (AUTO) 0.8 X10'3 (1.1-4.8); LYMPHOCYTES % (AUTO) 11.1 % (21-51); MEAN CORPUSCULAR HEMOGLOBIN 29.4 PG (27.0-31.0); MEAN CORPUSCULAR HGB CONC 30.6 g/dL (33.0-36.5); MEAN CORPUSCULAR VOLUME 95.9 FL (78-98); MEAN PLATELET VOLUME 9.1 FL (7.4-10.4); MONOCYTES # (AUTO) 0.3 X10'3 (0-0.9); MONOCYTES % (AUTO) 4.4 % (2-12); NEUTROPHILS # (AUTO) 6.1 X10'3 (1.8-7.7); NEUTROPHILS % (AUTO) 82.1 % (42-75); RED BLOOD COUNT 2.83 X10'6 (4.20-5.60); RED CELL DISTRIBUTION WIDTH 21.2 % (11.5-14.5); WHITE BLOOD COUNT 7.5 X10'3 (4.5-11.0)
[2020-06-25 16:25] LABS: PLATELET COUNT 41 X10'3 (140-440)
[2020-06-25] MEDS: albumin (human) 25% 100 ML IV solution IV SCH ×2 (16:34→23:54)
[2020-06-25] MEDS: hydrocortisone sod succ/PF 100mg/2ml inj. IV SCH ×2 (16:34→23:52)
[2020-06-25 16:37] LABS: ANION GAP 23 (8-16); BLOOD UREA NITROGEN 6 MG/DL (7-18); BUN/CREATININE RATIO 3.6 (6.6-38.0); CHLORIDE 101 MMOL/L (99-107); CREATININE 1.69 MG/DL (0.40-0.90); GLUCOSE 107 MG/DL (70-104); MAGNESIUM 1.9 MG/DL (1.5-2.4); SODIUM 135 MMOL/L (135-145); eGFR 33 ML/MIN
[2020-06-25 16:38] LABS: ALBUMIN 2.6 G/DL (3.4-5.0); AMYLASE 632 U/L (25-115)
[2020-06-25 16:41] LABS: LIPASE 5091 U/L (73-393); PHOSPHORUS 4.6 MG/DL (2.3-4.5)
[2020-06-25 16:42] LABS: TOTAL CARBON DIOXIDE 11.2 MMOL/L (24-32)
--- NOTE | 2020-06-25 16:51 | NUR ---
pt suddenly navneet'd and went into afib. rate between 40-120s. intermittently switches back to sinus tach for short periods of time. atropine at bedside. pt is limited code. abg and labs drawn. bicarb of 9 from 16 previously. k 6.0, plt 41, co2 11, lactic 18.3. precedex turned off for bradycardia. Dr. reese called. orders to change duosol bags to 2k, push 2 amps of bicarb, and start bicarb gtt at 150.
[2020-06-25] MEDS ORDERED: sodium bicarbonate (8.4%) 1 mEq/ml syringe IV ONE (17:05)
[2020-06-25] MEDS: sodium bicarbonate (8.4%) inj. 150 MEQ in dextrose 5%-water 1,000 ML IV SCH (17:13)
[2020-06-25] MEDS: bicarb dialysis sol 2K+/3 Ca2+ 5,000 ML HE SCH (17:18)
--- NOTE | 2020-06-25 18:15 | NUR ---
Patient in room ICU 2038. I have received report from Maureen HUIZAR and had the opportunity to ask questions and assume patient care. Pt ventilated, on CVVH, also on levo and vasopressin gtt's to support BP. Will continue to monitor closely.
[2020-06-25 19:49] LABS: OXYGEN SATURATION (MIXED VEN) 75.4 % (60-80); PO2 MIXED VENOUS (TEMP COR) 42.9 mmHg (35-46)
[2020-06-25] MEDS ORDERED: atropine 1 MG/1 ML vial IV ONE (22:20)
--- NOTE | 2020-06-25 22:25 | NUR ---
Pt's HR dropping into the 40's with multiple types of ectopy. 10% Ca Chloride pushed, along with 0.5mg of atropine. Labs drawn early, will continue to monitor.
[2020-06-25 22:38] LABS: BASOPHILS % (AUTO) 0.1 % (0-1); HEMOGLOBIN 7.7 g/dl (12.0-16.0); MONOCYTES # (AUTO) 0.5 X10'3 (0-0.9); WHITE BLOOD COUNT 9.4 X10'3 (4.5-11.0)
[2020-06-25 22:40] LABS: EOSINOPHILS # (AUTO) 0.3 X10'3 (0-0.9); EOSINOPHILS % (AUTO) 3.2 % (0-6); HEMATOCRIT 25.2 % (35.0-45.0); LYMPHOCYTES # (AUTO) 0.7 X10'3 (1.1-4.8); MEAN CORPUSCULAR HEMOGLOBIN 29.5 PG (27.0-31.0); MEAN CORPUSCULAR HGB CONC 30.7 g/dL (33.0-36.5); MEAN CORPUSCULAR VOLUME 96.1 FL (78-98); MEAN PLATELET VOLUME 8.7 FL (7.4-10.4); MONOCYTES % (AUTO) 5.5 % (2-12); NEUTROPHILS # (AUTO) 7.9 X10'3 (1.8-7.7); NEUTROPHILS % (AUTO) 84.2 % (42-75); RED BLOOD COUNT 2.62 X10'6 (4.20-5.60); RED CELL DISTRIBUTION WIDTH 21.5 % (11.5-14.5)
[2020-06-25 23:00] LABS: ALANINE AMINOTRANSFERASE 592 U/L (12-78); ALKALINE PHOSPHATASE 106 IU/L (46-116); ANION GAP 23 (8-16); BILIRUBIN,TOTAL 5.4 MG/DL (0.1-1.0); BLOOD UREA NITROGEN 6 MG/DL (7-18); BUN/CREATININE RATIO 3.8 (6.6-38.0); CALCIUM 7.5 MG/DL (8.5-10.1); CHLORIDE 99 MMOL/L (99-107); GLUCOSE 72 MG/DL (70-104); MAGNESIUM 1.9 MG/DL (1.5-2.4); POTASSIUM 5.7 MMOL/L (3.5-5.1); SODIUM 135 MMOL/L (135-145); eGFR 35 ML/MIN
[2020-06-25 23:17] LABS: ALBUMIN/GLOBULIN RATIO 1.5 (1.1-1.5); PHOSPHORUS 4.5 MG/DL (2.3-4.5)
[2020-06-25] MEDS: atropine 0.1mg/ml 10ml syringe IV ONE ×2 (23:20→23:57)
[2020-06-25 23:22] LABS: TOTAL CARBON DIOXIDE 13.4 MMOL/L (24-32)
[2020-06-25 23:25] LABS: ASPARTATE AMINO TRANSFERASE 4322 U/L (10-37)
[2020-06-25 23:36] LABS: PLATELET COUNT 33 X10'3 (140-440)
[2020-06-25 23:41] LABS: ABG BASE EXCESS -16.5 mmol/L (-2.0-2.0); ABG HCO3 10.9 mmol/L (22.0-26.0); ABG OXYGEN SATURATION 99.6 % (94-97); ABG PCO2 (T) 30.3 mmHg (32.0-45.0); ABG PO2 (T) 183.8 mmHg (75.0-100.0); FCOHb 0.4 % (0.0-3.9); FMetHb 0.1 % (0.0-1.5); FO2Hb 99.1 % (94-97); PEEP 10 cm H2O; RESPIRATORY RATE 30 b/min; TIDAL VOLUME 280 mL; TOTAL HEMOGLOBIN 8.3 G/dl (12.0-16.0)
[2020-06-26] VITALS (27 sets, daily range): BP systolic 110–141; BP diastolic 30–53
[2020-06-26] MEDS: sodium bicarbonate (8.4%) inj. 150 MEQ in dextrose 5%-water 1,000 ML IV SCH ×5 (00:54→23:00)
[2020-06-26] MEDS: bicarb dialysis sol 2K+/3 Ca2+ 5,000 ML HE SCH ×8 (00:55→19:46)
[2020-06-26] MEDS: dextrose 50%-water 50ml dispensing syringe IV PRN (01:52)
[2020-06-26] MEDS: mineral oil/petrolatum ophthal oint EACHEYE SCH ×4 (02:00→20:31)
[2020-06-26] MEDS: VANCOMYCIN LEVEL IV SCH (03:00)
[2020-06-26 03:36] LABS: BASOPHILS % (AUTO) 0.1 % (0-1); EOSINOPHILS # (AUTO) 0.3 X10'3 (0-0.9); HEMATOCRIT 23.9 % (35.0-45.0); HEMOGLOBIN 7.4 g/dl (12.0-16.0); LYMPHOCYTES # (AUTO) 0.6 X10'3 (1.1-4.8); LYMPHOCYTES % (AUTO) 6.5 % (21-51); MEAN CORPUSCULAR HEMOGLOBIN 29.5 PG (27.0-31.0); MEAN CORPUSCULAR HGB CONC 31.1 g/dL (33.0-36.5); MEAN PLATELET VOLUME 8.8 FL (7.4-10.4); MONOCYTES # (AUTO) 0.5 X10'3 (0-0.9); NEUTROPHILS # (AUTO) 7.4 X10'3 (1.8-7.7); NEUTROPHILS % (AUTO) 84.4 % (42-75); RED BLOOD COUNT 2.51 X10'6 (4.20-5.60); RED CELL DISTRIBUTION WIDTH 21.5 % (11.5-14.5); WHITE BLOOD COUNT 8.8 X10'3 (4.5-11.0)
[2020-06-26 03:49] LABS: PLATELET COUNT 32 X10'3 (140-440)
[2020-06-26 03:51] LABS: ALBUMIN 3.5 G/DL (3.4-5.0); AMYLASE 515 U/L (25-115); ANION GAP 24 (8-16); BLOOD UREA NITROGEN 6 MG/DL (7-18); BUN/CREATININE RATIO 3.8 (6.6-38.0); CHLORIDE 98 MMOL/L (99-107); CREATININE 1.58 MG/DL (0.40-0.90); GLUCOSE 106 MG/DL (70-104); MAGNESIUM 1.8 MG/DL (1.5-2.4); SODIUM 137 MMOL/L (135-145); eGFR 36 ML/MIN
[2020-06-26] MEDS: furosemide 10 MG/1 ML 10ml inj IV SCH ×6 (04:00→20:31)
[2020-06-26 04:05] LABS: PHOSPHORUS 4.7 MG/DL (2.3-4.5); POTASSIUM 5.1 MMOL/L (3.5-5.1)
[2020-06-26 04:08] LABS: LIPASE 3453 U/L (73-393)
[2020-06-26 04:10] LABS: TOTAL CARBON DIOXIDE 14.6 MMOL/L (24-32)
[2020-06-26 04:45] LABS: ABG HCO3 13.7 mmol/L (22.0-26.0); ABG OXYGEN SATURATION 98.8 % (94-97); ABG PCO2 (T) 32.7 mmHg (32.0-45.0); ABG PO2 (T) 124.9 mmHg (75.0-100.0); FCOHb 1.3 % (0.0-3.9); FMetHb 0.3 % (0.0-1.5); FO2Hb 97.2 % (94-97); PATIENT TEMPERATURE 35.8; PEEP 10 cm H2O; RESPIRATORY RATE 30 b/min; TIDAL VOLUME 280 mL
[2020-06-26] MEDS ORDERED: calcium chloride 100 MG/1 ML inj IV ONE ×2 (05:30→06:33)
--- NOTE | 2020-06-26 05:35 | NUR ---
PT'S HR DROPPED INTO 30-40'S, PUSHED 1G ZHANNA CHLORIDE 10% - HR UP TO 100'S. NEW ORDER FOR 0.5MG OF ATROPINE IF HR GETS <50.
--- NOTE | 2020-06-26 06:30 | NUR ---
Patient in room ICU 2038. I have received report from GAYE Walden and had the opportunity to ask questions and assume patient care.
--- NOTE | 2020-06-26 06:31 | NUR ---
Problems reprioritized. Patient report given, questions answered & plan of care reviewed with Nagi HUIZAR.
[2020-06-26 06:44] LABS: NUCLEATED RED BLOOD CELLS 3 /100WBC (0-0); TOTAL CELLS COUNTED 100
[2020-06-26 06:45] LABS: ANISOCYTOSIS 3+; PLATELET ESTIMATE DECREASED; STOMATOCYTES 1+
[2020-06-26] MEDS: K and/or MAG REPLACEMENT MC SCH ×2 (08:00→20:20)
[2020-06-26] MEDS: cefepime 1GM/NS ADD-VANTAGE 100 ML IV SCH ×2 (08:15→20:32)
[2020-06-26] MEDS: hydrocortisone sod succ/PF 100mg/2ml inj. IV SCH ×2 (08:15→15:28)
[2020-06-26] MEDS: albumin (human) 25% 100 ML IV solution IV SCH ×2 (08:15→15:27)
[2020-06-26] MEDS: folic acid 1mg/0.2ml inj IV SCH (08:30)
[2020-06-26] MEDS: thiamine inj. 100 MG in normal saline 100ml IV soln 100 ML IV SCH (08:31)
[2020-06-26] MEDS: pantoprazole 40 MG vial IV SCH (08:42)
[2020-06-26 09:01] LABS: VANCOMYCIN,RANDOM 14.6 UG/ML
[2020-06-26 09:06] LABS: ALANINE AMINOTRANSFERASE 777 U/L (12-78); ALBUMIN 3.5 G/DL (3.4-5.0); ALKALINE PHOSPHATASE 116 IU/L (46-116); ANION GAP 24 (8-16); BILIRUBIN,TOTAL 6.1 MG/DL (0.1-1.0); BLOOD UREA NITROGEN 6 MG/DL (7-18); CALCIUM 7.7 MG/DL (8.5-10.1); CHLORIDE 98 MMOL/L (99-107); CREATININE 1.51 MG/DL (0.40-0.90); GLUCOSE 104 MG/DL (70-104); SODIUM 138 MMOL/L (135-145); TOTAL CARBON DIOXIDE 16.3 MMOL/L (24-32); eGFR 38 ML/MIN
[2020-06-26] MEDS: propofol 1000mg/100ml bottle 100 ML IV SCH (09:10)
[2020-06-26 09:13] LABS: ALBUMIN/GLOBULIN RATIO 1.8 (1.1-1.5); POTASSIUM 5.4 MMOL/L (3.5-5.1); TOTAL PROTEIN 5.5 G/DL (6.4-8.2)
[2020-06-26 09:26] LABS: ASPARTATE AMINO TRANSFERASE 6305 U/L (10-37)
[2020-06-26 10:24] LABS: HEMOGLOBIN 7.2 g/dl (12.0-16.0); LYMPHOCYTES # (AUTO) 0.6 X10'3 (1.1-4.8); MONOCYTES # (AUTO) 0.7 X10'3 (0-0.9); MONOCYTES % (AUTO) 7.6 % (2-12); RED CELL DISTRIBUTION WIDTH 21.3 % (11.5-14.5)
[2020-06-26 10:26] LABS: BASOPHILS % (AUTO) 0.2 % (0-1); EOSINOPHILS # (AUTO) 0.4 X10'3 (0-0.9); EOSINOPHILS % (AUTO) 4.2 % (0-6); HEMATOCRIT 23.1 % (35.0-45.0); MEAN CORPUSCULAR HEMOGLOBIN 29.6 PG (27.0-31.0); MEAN CORPUSCULAR HGB CONC 31.2 g/dL (33.0-36.5); MEAN CORPUSCULAR VOLUME 94.8 FL (78-98); NEUTROPHILS # (AUTO) 6.9 X10'3 (1.8-7.7); RED BLOOD COUNT 2.44 X10'6 (4.20-5.60); WHITE BLOOD COUNT 8.6 X10'3 (4.5-11.0)
[2020-06-26] MEDS ORDERED: iohexol 300mg/ml 100ml inj. ONE (10:29)
--- NOTE | 2020-06-26 10:40 | NUR ---
Planned return of blood. CVVH temporarily held. Out to CT.
[2020-06-26 10:47] LABS: PLATELET COUNT 28 X10'3 (140-440)
[2020-06-26 10:53] LABS: LIPASE 2879 U/L (73-393); PHOSPHORUS 4.4 MG/DL (2.3-4.5)
[2020-06-26 10:54] LABS: ANION GAP 22 (8-16); BLOOD UREA NITROGEN 6 MG/DL (7-18); BUN/CREATININE RATIO 4.5 (6.6-38.0); CHLORIDE 97 MMOL/L (99-107); CREATININE 1.34 MG/DL (0.40-0.90); GLUCOSE 66 MG/DL (70-104); SODIUM 135 MMOL/L (135-145); eGFR 43 ML/MIN
[2020-06-26 10:55] LABS: ALBUMIN 3.8 G/DL (3.4-5.0); AMYLASE 477 U/L (25-115); MAGNESIUM 1.9 MG/DL (1.5-2.4)
--- NOTE | 2020-06-26 11:30 | NUR ---
Back to room. Pt tolerated transfer well. CVVH resumed.
[2020-06-26] MEDS ORDERED: vancomycin/NS 1 GM ADD-VANTAGE 250 ML X 1 DOSE IV ONE (11:45)
[2020-06-26 12:09] LABS: ABG BASE EXCESS -13.1 mmol/L (-2.0-2.0); ABG HCO3 12.5 mmol/L (22.0-26.0); ABG OXYGEN SATURATION 96.8 % (94-97); ABG PCO2 (T) 27.3 mmHg (32.0-45.0); ABG PO2 (T) 98.2 mmHg (75.0-100.0); FCOHb 1.8 % (0.0-3.9); FMetHb 0.3 % (0.0-1.5); FO2Hb 94.8 % (94-97); PEEP 8 cm H2O; RESPIRATORY RATE 18 b/min; TIDAL VOLUME 350 mL; TOTAL HEMOGLOBIN 6.8 G/dl (12.0-16.0)
[2020-06-26 12:15] LABS: OXYGEN SATURATION (MIXED VEN) 73.4 % (60-80); PO2 MIXED VENOUS (TEMP COR) 42.8 mmHg (35-46)
[2020-06-26] MEDS: octreotide inj. 1,250 MCG in normal saline 250ml IV soln 243.75 ML IV SCH (12:16)
[2020-06-26] MEDS: dexmedetomidine/D5W 100mL 100 ML IV SCH ×3 (12:32→23:21)
[2020-06-26] MEDS: FENTANYL-0.9 % NACL/PF 100 ML IV PRN (12:33)
[2020-06-26] MEDS: metoclopramide 5 mg/ml inj IV SCH ×2 (15:28→20:31)
[2020-06-26] MEDS: atropine 0.1mg/ml 10ml syringe IV PRN ×2 (15:52→20:36)
[2020-06-26] MEDS: calcium chloride inj. 1,000 MG in normal saline 100ml IV soln 90 ML IV PRN (16:29)
[2020-06-26 16:58] LABS: ABG BASE EXCESS -12.4 mmol/L (-2.0-2.0); ABG HCO3 12.9 mmol/L (22.0-26.0); ABG OXYGEN SATURATION 96.8 % (94-97); ABG PO2 (T) 99.3 mmHg (75.0-100.0); FCOHb 1.7 % (0.0-3.9); FMetHb 0.3 % (0.0-1.5); FO2Hb 94.9 % (94-97); PEEP 8 cm H2O; RESPIRATORY RATE 18 b/min; TIDAL VOLUME 350 mL; TOTAL HEMOGLOBIN 6.5 G/dl (12.0-16.0)
[2020-06-26 17:02] LABS: OXYGEN SATURATION (MIXED VEN) 59.9 % (60-80); PO2 MIXED VENOUS (TEMP COR) 36.4 mmHg (35-46)
[2020-06-26 17:39] LABS: RED CELL DISTRIBUTION WIDTH 21.8 % (11.5-14.5); WHITE BLOOD COUNT 7.6 X10'3 (4.5-11.0)
[2020-06-26 17:41] LABS: BASOPHILS % (AUTO) 0.1 % (0-1); EOSINOPHILS # (AUTO) 0.4 X10'3 (0-0.9); EOSINOPHILS % (AUTO) 5.1 % (0-6); LYMPHOCYTES # (AUTO) 0.7 X10'3 (1.1-4.8); LYMPHOCYTES % (AUTO) 8.7 % (21-51); MEAN CORPUSCULAR HEMOGLOBIN 29.3 PG (27.0-31.0); MEAN CORPUSCULAR HGB CONC 30.9 g/dL (33.0-36.5); MEAN CORPUSCULAR VOLUME 94.8 FL (78-98); MEAN PLATELET VOLUME 9.1 FL (7.4-10.4); MONOCYTES # (AUTO) 0.7 X10'3 (0-0.9); MONOCYTES % (AUTO) 9.7 % (2-12); NEUTROPHILS # (AUTO) 5.8 X10'3 (1.8-7.7); NEUTROPHILS % (AUTO) 76.4 % (42-75); RED BLOOD COUNT 2.22 X10'6 (4.20-5.60)
[2020-06-26 17:52] LABS: HEMATOCRIT 21.1 % (35.0-45.0); HEMOGLOBIN 6.5 g/dl (12.0-16.0); PLATELET COUNT 23 X10'3 (140-440)
--- NOTE | 2020-06-26 17:54 | NUR ---
Critical Hgb, Hct, Plt called to Dr. Charles. PT/INR ordered stat, 2 units LRPC orderd.
[2020-06-26 17:55] LABS: ALBUMIN 3.7 G/DL (3.4-5.0); AMYLASE 415 U/L (25-115); ANION GAP 25 (8-16); BLOOD UREA NITROGEN 7 MG/DL (7-18); BUN/CREATININE RATIO 5.1 (6.6-38.0); CHLORIDE 96 MMOL/L (99-107); CREATININE 1.36 MG/DL (0.40-0.90); GLUCOSE 72 MG/DL (70-104); MAGNESIUM 1.7 MG/DL (1.5-2.4); SODIUM 136 MMOL/L (135-145); TOTAL CARBON DIOXIDE 15.5 MMOL/L (24-32); eGFR 43 ML/MIN
[2020-06-26 17:56] LABS: PHOSPHORUS 4.2 MG/DL (2.3-4.5); POTASSIUM 4.5 MMOL/L (3.5-5.1)
--- NOTE | 2020-06-26 18:20 | NUR ---
Problems reprioritized. Patient report given, questions answered & plan of care reviewed with GAYE Jefferson.
[2020-06-26 18:23] LABS: LIPASE 2282 U/L (73-393)
--- NOTE | 2020-06-26 18:55 | NUR ---
I have received report and assumed care of pt, pt resting in bed rise and fall of chest cavity equile and symmetrical. spoke to Dr. Charles regarding pts PT PTT INR new orders to give 2 FFP, 2 PRBC and to draw a Fibro. if less then 100 give pk of cryo.
[2020-06-26] MEDS: NORepinephrine inj. 32 MG in normal saline 250ml IV soln 218 ML IV SCH (19:03)
[2020-06-26] MEDS: vasopressin inj. 40 UNIT in normal saline 50ml IV soln 38 ML IV SCH (19:50)
--- NOTE | 2020-06-26 20:24 | NUR ---
5 pk cryo given fibro 67.
[2020-06-26] MEDS ORDERED: heparin 1,000 units/ml 10ml inj HE ONE (21:00)
--- NOTE | 2020-06-26 23:05 | NUR ---
no transfusion reaction noted from FFP. PRBC, and CRYO.
[2020-06-27] VITALS (23 sets, daily range): BP systolic 102–124; BP diastolic 35–46
[2020-06-27] MEDS: albumin (human) 25% 100 ML IV solution IV SCH ×3 (00:02→16:32)
[2020-06-27] MEDS: furosemide 10 MG/1 ML 10ml inj IV SCH ×6 (00:02→19:20)
[2020-06-27] MEDS: hydrocortisone sod succ/PF 100mg/2ml inj. IV SCH ×3 (00:02→16:31)
[2020-06-27 00:51] LABS: EOSINOPHILS # (AUTO) 0.3 X10'3 (0-0.9); HEMOGLOBIN 9.1 g/dl (12.0-16.0); MEAN PLATELET VOLUME 8.8 FL (7.4-10.4)
[2020-06-27 00:54] LABS: BASOPHILS % (AUTO) 0.3 % (0-1); EOSINOPHILS % (AUTO) 3.7 % (0-6); HEMATOCRIT 28.9 % (35.0-45.0); LYMPHOCYTES # (AUTO) 0.7 X10'3 (1.1-4.8); LYMPHOCYTES % (AUTO) 9.9 % (21-51); MEAN CORPUSCULAR HEMOGLOBIN 29.1 PG (27.0-31.0); MEAN CORPUSCULAR HGB CONC 31.6 g/dL (33.0-36.5); MEAN CORPUSCULAR VOLUME 92.3 FL (78-98); MONOCYTES # (AUTO) 0.7 X10'3 (0-0.9); MONOCYTES % (AUTO) 9.7 % (2-12); NEUTROPHILS # (AUTO) 5.5 X10'3 (1.8-7.7); NEUTROPHILS % (AUTO) 76.4 % (42-75); RED BLOOD COUNT 3.13 X10'6 (4.20-5.60); RED CELL DISTRIBUTION WIDTH 19.9 % (11.5-14.5)
[2020-06-27 01:10] LABS: PARTIAL THROMBOPLASTIN TIME 72 SECONDS (22-32)
[2020-06-27 01:15] LABS: ALBUMIN 3.9 G/DL (3.4-5.0); AMYLASE 366 U/L (25-115); ANION GAP 23 (8-16); BLOOD UREA NITROGEN 6 MG/DL (7-18); BUN/CREATININE RATIO 4.7 (6.6-38.0); CHLORIDE 96 MMOL/L (99-107); CREATININE 1.28 MG/DL (0.40-0.90); GLUCOSE 86 MG/DL (70-104); LIPASE 1656 U/L (73-393); MAGNESIUM 1.6 MG/DL (1.5-2.4); PHOSPHORUS 4.5 MG/DL (2.3-4.5); POTASSIUM 4.1 MMOL/L (3.5-5.1); SODIUM 134 MMOL/L (135-145); TOTAL CARBON DIOXIDE 15.3 MMOL/L (24-32); eGFR 46 ML/MIN
[2020-06-27 02:13] LABS: PLATELET COUNT 18 X10'3 (140-440)
[2020-06-27] MEDS: metoclopramide 5 mg/ml inj IV SCH ×4 (02:31→19:21)
[2020-06-27] MEDS: mineral oil/petrolatum ophthal oint EACHEYE SCH ×4 (02:32→19:20)
[2020-06-27 02:43] LABS: NUCLEATED RED BLOOD CELLS 11 /100WBC (0-0); TOTAL CELLS COUNTED 100
[2020-06-27 02:44] LABS: ANISOCYTOSIS 2+; PLATELET ESTIMATE DECREASED
[2020-06-27 02:52] LABS: WHITE BLOOD COUNT 6.5 X10'3 (4.5-11.0)
[2020-06-27] MEDS: NORepinephrine inj. 32 MG in normal saline 250ml IV soln 218 ML IV SCH ×2 (02:56→09:11)
[2020-06-27] MEDS: bicarb dialysis sol 2K+/3 Ca2+ 5,000 ML HE SCH ×4 (02:57→11:26)
[2020-06-27 03:12] LABS: ABG BASE EXCESS -11.6 mmol/L (-2.0-2.0); ABG OXYGEN SATURATION 97.8 % (94-97); ABG PCO2 (T) 34.1 mmHg (32.0-45.0); ABG PO2 (T) 103.1 mmHg (75.0-100.0); FCOHb 0.9 % (0.0-3.9); FMetHb 0.3 % (0.0-1.5); FO2Hb 96.6 % (94-97); PATIENT TEMPERATURE 35.4; PEEP 8 cm H2O; RESPIRATORY RATE 18 b/min; TIDAL VOLUME 350 mL; TOTAL HEMOGLOBIN 9.5 G/dl (12.0-16.0)
[2020-06-27] MEDS: VANCOMYCIN LEVEL IV SCH (03:29)
--- NOTE | 2020-06-27 06:08 | NUR ---
report given to rec rn plan of care reviwed
[2020-06-27] MEDS: dexmedetomidine/D5W 100mL 100 ML IV SCH (06:26)
--- NOTE | 2020-06-27 06:33 | NUR ---
Patient in room ICU 2038. I have received report from Li and had the opportunity to ask questions and assume patient care.
[2020-06-27] MEDS: pantoprazole 40 MG vial IV SCH (07:21)
[2020-06-27] MEDS: sodium bicarbonate (8.4%) inj. 150 MEQ in dextrose 5%-water 1,000 ML IV SCH ×2 (07:21→13:53)
[2020-06-27] MEDS: cefepime 1GM/NS ADD-VANTAGE 100 ML IV SCH ×2 (07:22→19:21)
[2020-06-27] MEDS: thiamine inj. 100 MG in normal saline 100ml IV soln 100 ML IV SCH (07:22)
[2020-06-27] MEDS: methylnaltrexone br 12mg/0.6ml inj***SubQ only SQ SCH (07:22)
[2020-06-27] MEDS: folic acid 1mg/0.2ml inj IV SCH (07:23)
[2020-06-27] MEDS: K and/or MAG REPLACEMENT MC SCH ×2 (08:00→19:21)
[2020-06-27] MEDS ORDERED: VANCOmycin 1250MG/NS 250ml Bag 250 ML IV SCH (08:00)
[2020-06-27] MEDS: calcium chloride inj. 1,000 MG in normal saline 100ml IV soln 90 ML IV PRN (09:12)
[2020-06-27 09:34] LABS: OXYGEN SATURATION (MIXED VEN) 56.7 % (60-80); PO2 MIXED VENOUS (TEMP COR) 27.4 mmHg (35-46)
[2020-06-27 09:37] LABS: ABG HCO3 14.2 mmol/L (22.0-26.0); ABG OXYGEN SATURATION 94.1 % (94-97); ABG PCO2 (T) 27.8 mmHg (32.0-45.0); ABG PO2 (T) 65.8 mmHg (75.0-100.0); FCOHb 1.8 % (0.0-3.9); FLOW 55 L/min; FMetHb 0.3 % (0.0-1.5); FO2Hb 92.1 % (94-97); PATIENT TEMPERATURE 35.8; PEEP 8 cm H2O; RESPIRATORY RATE 18 b/min; TIDAL VOLUME 350 mL; TOTAL HEMOGLOBIN 8.6 G/dl (12.0-16.0)
[2020-06-27 10:23] LABS: ALBUMIN 4.1 G/DL (3.4-5.0); AMYLASE 279 U/L (25-115); ANION GAP 24 (8-16); BLOOD UREA NITROGEN 6 MG/DL (7-18); BUN/CREATININE RATIO 5.5 (6.6-38.0); CHLORIDE 96 MMOL/L (99-107); CREATININE 1.09 MG/DL (0.40-0.90); GLUCOSE 83 MG/DL (70-104); LIPASE 1046 U/L (73-393); MAGNESIUM 1.6 MG/DL (1.5-2.4); SODIUM 136 MMOL/L (135-145); TOTAL CARBON DIOXIDE 15.6 MMOL/L (24-32); eGFR 55 ML/MIN
[2020-06-27 10:24] LABS: HEMATOCRIT 24.8 % (35.0-45.0); MEAN CORPUSCULAR HEMOGLOBIN 29.6 PG (27.0-31.0); MEAN CORPUSCULAR HGB CONC 32.2 g/dL (33.0-36.5); PHOSPHORUS 2.9 MG/DL (2.3-4.5); POTASSIUM 3.9 MMOL/L (3.5-5.1)
[2020-06-27 10:26] LABS: BASOPHILS % (AUTO) 0.4 % (0-1); EOSINOPHILS # (AUTO) 0.3 X10'3 (0-0.9); EOSINOPHILS % (AUTO) 4.8 % (0-6); LYMPHOCYTES # (AUTO) 0.7 X10'3 (1.1-4.8); LYMPHOCYTES % (AUTO) 10.2 % (21-51); MEAN PLATELET VOLUME 8.8 FL (7.4-10.4); MONOCYTES # (AUTO) 0.8 X10'3 (0-0.9); MONOCYTES % (AUTO) 10.6 % (2-12); NEUTROPHILS # (AUTO) 5.3 X10'3 (1.8-7.7); PLATELET COUNT 54 X10'3 (140-440); RED CELL DISTRIBUTION WIDTH 20.4 % (11.5-14.5); WHITE BLOOD COUNT 7.1 X10'3 (4.5-11.0)
[2020-06-27] MEDS ORDERED: phytonadione inj. 10 MG in normal saline 100ml IV soln 100 ML IV ONE (10:35)
[2020-06-27 11:07] LABS: NUCLEATED RED BLOOD CELLS 3 /100WBC (0-0); TOTAL CELLS COUNTED 100
[2020-06-27 11:08] LABS: ANISOCYTOSIS 3+; PLATELET ESTIMATE DECREASED; TOXIC GRANULATION 1+; TOXIC VACUOLATION 1+
[2020-06-27 11:10] LABS: LARGE PLATELETS FEW
[2020-06-27 11:38] LABS: ALANINE AMINOTRANSFERASE 992 U/L (12-78); ALKALINE PHOSPHATASE 188 IU/L (46-116); BILIRUBIN,TOTAL 8.6 MG/DL (0.1-1.0)
[2020-06-27 11:41] LABS: ALBUMIN/GLOBULIN RATIO 2.3 (1.1-1.5); TOTAL PROTEIN 5.9 G/DL (6.4-8.2)
[2020-06-27 12:00] LABS: ASPARTATE AMINO TRANSFERASE > 7000 U/L (10-37)
--- NOTE | 2020-06-27 12:02 | NUR ---
TPN consult. Tube feeds were turned off d/t high gastric residual volume of 400 ml, pt receiving relistor. Per Senior Project Accountant to give TPN for nutrition given lactic acidosis and mitigate catabolism. Recs d/w clinical pharmacist. Pt intubated and receiving CRRT. Will continue to follow closely. Recommend: 1. Continuous TPN using Clinimix E / with 50 ml 20% intralipids at goal rate 105 ml/hr will provide total volume 2520 ml, 120 g protein, 360 g dextrose, 3.9 mg/kg/min dextrose loading, and 1944 total calories, and 1464 non protein cals. 2. As medically indicated continue continuous trickle TF per MD via OG tube using Vital High Protein with goal rate of 20 mL/hr. To provide: 480 mL total volume/day, 480 kcal, 42 g protein, and 401 mL water 3. If to advance TF to meet estimated nutrient needs, Vital High Protein with goal rate of 70 mL/hr while receiving CRRT 4. Prealbumin q Saturday/ 5. Daily weights 6. Continue routine Folic acid and Thiamine for EtOH hx (see MD note) 7. Routine opioid antagonist per MD Addendum: 06/27/20 at [address] Amended: Links added.
--- NOTE | 2020-06-27 12:21 | NUR ---
Aspirated 450 ml gastric residual. tpn has been ordered. GR disposed.
[2020-06-27] MEDS ORDERED: magnesium 2GM in 50ml NS 50 ML IV PRN (13:35)
[2020-06-27] MEDS ORDERED: magnesium Cl slow-release 64mg tablet PO PRN (13:35)
[2020-06-27] MEDS ORDERED: Dextrose 10%-water IV solution 1,000 ML IV PRN (13:35)
[2020-06-27] MEDS ORDERED: magnesium 4gm in 100ml NS 100 ML IV PRN (13:35)
--- NOTE | 2020-06-27 14:33 | NUR ---
Brock at bedside and mother Marisa. Brock was able to speak with Dr Charles on the telephone.
[2020-06-27 14:59] LABS: ABG BASE EXCESS -7.3 mmol/L (-2.0-2.0); ABG HCO3 18.3 mmol/L (22.0-26.0); ABG OXYGEN SATURATION 98.7 % (94-97); ABG PCO2 (T) 35.2 mmHg (32.0-45.0); ABG PO2 (T) 107.2 mmHg (75.0-100.0); FCOHb 1.5 % (0.0-3.9); FLOW 55 L/min; FO2Hb 97.2 % (94-97); PATIENT TEMPERATURE 35.8; PEEP 8 cm H2O; RESPIRATORY RATE 18 b/min; TIDAL VOLUME 350 mL; TOTAL HEMOGLOBIN 8.6 G/dl (12.0-16.0)
[2020-06-27] MEDS ORDERED: [UNRECOGNIZED DRUG - REMARK] IV SCH ×5 (15:00)
[2020-06-27 16:33] LABS: HEMOGLOBIN 8.3 g/dl (12.0-16.0); LYMPHOCYTES # (AUTO) 0.8 X10'3 (1.1-4.8)
[2020-06-27 16:35] LABS: BASOPHILS % (AUTO) 0.2 % (0-1); EOSINOPHILS # (AUTO) 0.1 X10'3 (0-0.9); EOSINOPHILS % (AUTO) 1.5 % (0-6); HEMATOCRIT 25.2 % (35.0-45.0); LYMPHOCYTES % (AUTO) 7.8 % (21-51); MEAN CORPUSCULAR HEMOGLOBIN 29.9 PG (27.0-31.0); MEAN CORPUSCULAR HGB CONC 32.9 g/dL (33.0-36.5); MEAN CORPUSCULAR VOLUME 90.9 FL (78-98); MONOCYTES % (AUTO) 10.4 % (2-12); NEUTROPHILS # (AUTO) 7.9 X10'3 (1.8-7.7); NEUTROPHILS % (AUTO) 80.1 % (42-75); RED BLOOD COUNT 2.77 X10'6 (4.20-5.60); RED CELL DISTRIBUTION WIDTH 20.2 % (11.5-14.5)
[2020-06-27 16:45] LABS: ALBUMIN 3.9 G/DL (3.4-5.0); AMYLASE 271 U/L (25-115); ANION GAP 20 (8-16); BLOOD UREA NITROGEN 7 MG/DL (7-18); BUN/CREATININE RATIO 6.9 (6.6-38.0); CHLORIDE 97 MMOL/L (99-107); CREATININE 1.02 MG/DL (0.40-0.90); GLUCOSE 128 MG/DL (70-104); LIPASE 886 U/L (73-393); MAGNESIUM 1.5 MG/DL (1.5-2.4); SODIUM 138 MMOL/L (135-145); TOTAL CARBON DIOXIDE 21.1 MMOL/L (24-32); eGFR 59 ML/MIN
[2020-06-27 16:59] LABS: PHOSPHORUS 2.5 MG/DL (2.3-4.5)
[2020-06-27 17:00] LABS: POTASSIUM 3.4 MMOL/L (3.5-5.1)
[2020-06-27 17:14] LABS: PLATELET COUNT 38 X10'3 (140-440)
[2020-06-27 17:15] LABS: WHITE BLOOD COUNT 9.9 X10'3 (4.5-11.0)
--- NOTE | 2020-06-27 17:26 | NUR ---
Received a call from Brock Rodríguez. He stated that the pt's children have arrived and that the family is ready to have the pt move to comfort care.
[2020-06-27 17:42] LABS: PARTIAL THROMBOPLASTIN TIME 76 SECONDS (22-32)
[2020-06-27] MEDS ORDERED: morphine 10mg/ml inj. IV PRN (17:45)
[2020-06-27] MEDS ORDERED: LORazepam 2 mg/ml vial IV PRN (17:45)
[2020-06-27] MEDS ORDERED: heparin 1,000 units/ml 10ml inj HE ONE ×2 (18:05)
--- NOTE | 2020-06-27 18:21 | NUR ---
CVVH ended. Planned return of blood performed. Comfort care orders placed.
--- NOTE | 2020-06-27 18:28 | NUR ---
Problems reprioritized. Patient report given, questions answered & plan of care reviewed with GAYE Curiel.
--- NOTE | 2020-06-27 18:30 | NUR ---
Patient in room ICU 2038. I have received report from GAYE Lazar and had the opportunity to ask questions and assume patient care.
[2020-06-27] MEDS: FENTANYL-0.9 % NACL/PF 100 ML IV PRN (18:43)
--- NOTE | 2020-06-27 19:00 | NUR ---
Spoke to [facility] reference number [id number]. Pt is not a candidate for donation, will call back with cardiac time of .
--- NOTE | 2020-06-27 21:15 | NUR ---
Patient extubated to comfort care at 2099, patient given Ativan 4MG at 2110 and Levophed shut off at this time.
--- NOTE | 2020-06-27 21:15 | NUR ---
Pt extubated to comfort care, placed on 2 ,pm nc Addendum: 06/27/20 at 2119 [address] Sallie Solis RT Amended: Links added.
--- NOTE | 2020-06-27 21:59 | NUR ---
Brock Rodríguez notified of his 's passing
--- NOTE | 2020-06-27 22:00 | NUR ---
RN IS TO DOCUMENT YES TO ALL APPLICABLE AREAS Pronouncement of : 1. Time Physician Notified:[id number] 2. Date of :06/27/20 3. Time of : 2152 4. DNR/Withdraw life support documented: Y 5. Monitor strip has been placed on chart: Y 6. Assessment process is of one-minute duration and includes following criteria: a) Patient is unresponsive to all stimuli: Y b) Pupils fixed and non-reactive: Y c) Auscultation of precordium reveals absence of heart tones: Y d) Auscultation of lungs reveals absence of breath sounds: Y e) Absence of blood pressure / all vital signs: Y f) QRS complexes are not present on monitor / EKG strip: Y g) Pacer spikes without capture: n/a 4. Comments:
[2020-06-27 22:12] LABS: PREALBUMIN 13.2 MG/DL (19-36)
[2020-06-27 22:14] LABS: TRIGLYCERIDES 122 MG/DL (20-135)
[2020-06-30] MEDS ORDERED: VANCOMYCIN LEVEL IV ONE (07:30)
== END 2020-06-27 23:24 | disposition expired ==
LOC: ER 21:39 → ED HOLD 23:56 → SUR 3N 06-24 01:18 → ICU 2S 06-24 07:43
PROVIDERS: ADMIT Family Medicine; ATTEND Internal Medicine Critical Care Medicine
PROC: 0FJB8ZZ Inspection of Hepatobiliary Duct, Via Natural or Artificial Opening Endoscopic (ICD-10-PCS; principal; 2020-06-24)
PROC: 0FJD8ZZ Inspection of Pancreatic Duct, Via Natural or Artificial Opening Endoscopic (ICD-10-PCS; 2020-06-24)
PROC: BF111ZZ Fluoroscopy of Biliary and Pancreatic Ducts using Low Osmolar Contrast (ICD-10-PCS; 2020-06-24)
PROC: 5A1945Z Respiratory Ventilation, 24-96 Consecutive Hours (ICD-10-PCS; 2020-06-24)
PROC: 0BH17EZ Insertion of Endotracheal Airway into Trachea, Via Natural or Artificial Opening (ICD-10-PCS; 2020-06-24)
PROC: 3E02340 Introduction of Influenza Vaccine into Muscle, Percutaneous Approach (ICD-10-PCS; 2020-06-24)
PROC: 5A1D70Z Performance of Urinary Filtration, Intermittent, Less than 6 Hours Per Day (ICD-10-PCS; 2020-06-24)
PROC: 02H633Z Insertion of Infusion Device into Right Atrium, Percutaneous Approach (ICD-10-PCS; 2020-06-24)
PROC: 30233N1 Transfusion of Nonautologous Red Blood Cells into Peripheral Vein, Percutaneous Approach (ICD-10-PCS; 2020-06-26)
PROC: 30233K1 Transfusion of Nonautologous Frozen Plasma into Peripheral Vein, Percutaneous Approach (ICD-10-PCS; 2020-06-26)
PROC: 30233M1 Transfusion of Nonautologous Plasma Cryoprecipitate into Peripheral Vein, Percutaneous Approach (ICD-10-PCS; 2020-06-26)
PROC: 5A1D90Z Performance of Urinary Filtration, Continuous, Greater than 18 hours Per Day (ICD-10-PCS; 2020-06-26)
PROC: 30233R1 Transfusion of Nonautologous Platelets into Peripheral Vein, Percutaneous Approach (ICD-10-PCS; 2020-06-27)
PROC: 5A1D90Z Performance of Urinary Filtration, Continuous, Greater than 18 hours Per Day (ICD-10-PCS; 2020-06-27)
DX: K80.62 Calculus of gallbladder and bile duct with acute cholecystitis without obstruction (principal); E83.51 Hypocalcemia; E87.2 Acidosis; F12.90 Cannabis use, unspecified, uncomplicated; J80 Acute respiratory distress syndrome; K72.00 Acute and subacute hepatic failure without coma; K74.60 Unspecified cirrhosis of liver; K76.0 Fatty (change of) liver, not elsewhere classified; G89.29 Other chronic pain; K85.10 Biliary acute pancreatitis without necrosis or infection; R34 Anuria and oliguria; R71.0 Precipitous drop in hematocrit; N17.9 Acute kidney failure, unspecified; Z20.822 Contact with and (suspected) exposure to COVID-19; Z51.5 Encounter for palliative care; Z66 Do not resuscitate; F17.200 Nicotine dependence, unspecified, uncomplicated; Z98.51 Tubal ligation status; Z23 Encounter for immunization; Z88.5 Allergy status to narcotic agent
CPT/HCPCS: 36415; 36430; 36600; 43260; 71045; 71260; 74176; 74177; 76700; 80053; 80069; 80076; 80202; 82150; 82330; 82550; 82803; 82810; 82948; 83605; 83690; 83735; 84132; 84134; 84478; 84484; 84703; 85007; 85008; 85018; 85025; 85384; 85610; 85730; 86885; 86900; 86901; 86920; 87040; 87070; 87081; 87426; 90935; 93005; 94002; 94003; 94760; 94799; 99285; C1769; C9113; E1594; G0378; J0461; J0692; J1170; J1200; J1610; J1644; J1720; J1940; J1956; J2060; J2212; J2250; J2270; J2354; J2405; J2543; J2704; J2765; J3010; J3370; J3411; J3430; J3490; J7030; J7050; P9012; P9016; P9035; P9047; P9059; Q9967